=== PATIENT | female | born 1980 | race Caucasian/White ===

== ENCOUNTER 2016-12-03 11:46 | Emergency (ER) | payer BC ==
--- NOTE | 2016-12-03 12:31 | ER Document Report ---
ED Medical Screen (RME) - General Stated Complaint: VAGINAL BLEEDING Notes: 36 yo female c/o vaginal bleeding, post menopausal. sent by Dr Saldana from [facility] for further evaluation. Saturating more than1 pad/hr. lower abdominal pain. hx/o Bone Marrow Transplant abdomen soft, + suprapubic tenderness TRAVEL OUTSIDE OF THE [place] IN LAST 30 DAYS: No - Related Data Allergies/Adverse Reactions: metronidazole [From Flagyl] Allergy (Severe, Verified 12/03/16 12:20) Urticaria Metronidazole HCl [From Flagyl] Allergy (Severe, Verified 12/03/16 12:20) Urticaria Past Medical History - Past Medical History Cardiac Medical History: Reports: Hx Hypertension Pulmonary Medical History: Reports: Hx Pneumonia GI Medical History: Reports: Hx Diverticulitis, Hx Gastroesophageal Reflux Disease Past Surgical History: Reports: Hx Abdominal Surgery - Sigmoid colectomy for diverticulitis and lap band procedure, Hx Orthopedic Surgery - wrist - Immunizations Hx Diphtheria, Pertussis, Tetanus Vaccination: No Physical Exam - Vital signs Vitals: Temp Pulse Resp BP Pulse Ox 98.1 F 91 18 110/74 100 12/03/16 12:08 12/03/16 12:08 12/03/16 12:08 12/03/16 12:08 12/03/16 12:08 Course - Vital Signs Vital signs: Temp Pulse Resp BP Pulse Ox 98.1 F 91 18 110/74 100 12/03/16 12:08 12/03/16 12:08 12/03/16 12:08 12/03/16 12:08 12/03/16 12:08
[2016-12-03 13:02] LABS: ABSOLUTE EOSINOPHILS # (AUTO) 0.2 10^3/uL (0.0-0.6); ABSOLUTE LYMPHOCYTES (AUTO) 3.1 10^3/uL (0.5-4.7); ABSOLUTE MONOCYTES (AUTO) 0.8 10^3/uL (0.1-1.4); ABSOLUTE NEUT (AUTO) 5.2 10^3/uL (1.7-8.2); BASOPHILS % (AUTO) 0.3 % (0-2); EOSINOPHILS % (AUTO) 2.5 % (0-6); HEMOGLOBIN 14.5 g/dL (12.0-15.5); HGB HCT DIFFERENCE 0.5; LYMPHOCYTES % (AUTO) 33.2 % (13-45); MEAN CORPUSCULAR HEMOGLOBIN 31.3 pg (27.0-33.4); MEAN CORPUSCULAR HGB CONC 33.6 g/dL (32.0-36.0); MEAN CORPUSCULAR VOLUME 93 fl (80-97); MONOCYTES % (AUTO) 8.2 % (3-13); RED BLOOD COUNT 4.63 10^6/uL (3.72-5.28); RED CELL DISTRIBUTION WIDTH 14.8 % (11.5-14.0); SEGMENTED NEUTROPHILS % (AUTO) 55.8 % (42-78); WHITE BLOOD COUNT 9.3 10^3/uL (4.0-10.5)
[2016-12-03 13:15] LABS: ALANINE AMINOTRANSFERASE 30 U/L (9-52); ALBUMIN 4.6 g/dL (3.5-5.0); ALKALINE PHOSPHATASE 139 U/L (38-126); ANION GAP 15 (5-19); ASPARTATE AMINO TRANSFERASE 24 U/L (14-36); BILIRUBIN,TOTAL 0.5 mg/dL (0.2-1.3); BLOOD UREA NITROGEN 13 mg/dL (7-20); CALCIUM 9.7 mg/dL (8.4-10.2); CARBON DIOXIDE 20 mmol/L (22-30); CHLORIDE 111 mmol/L (98-107); GLUCOSE 103 mg/dL (75-110); POTASSIUM 4.1 mmol/L (3.6-5.0); TOTAL PROTEIN 7.9 g/dL (6.3-8.2)
--- NOTE | 2016-12-03 15:34 | ER Document Report ---
ED General - General Chief Complaint: Vaginal Bleeding Stated Complaint: VAGINAL BLEEDING Time seen by provider: 15:31 Mode of Arrival: Ambulatory Information source: Patient Notes: 36-year-old female with heavy vaginal bleeding and passage of clots with bilateral lower abdominal cramping similar to menstrual cramps beginning yesterday. 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 He says she's been told that she is prone to drop her platelets and that if she had further postmenopausal bleeding she might require intermittent real ablation. She contacted her RESORT MANAGER Dr. Dash about this this morning and says she was told to come to the emergency department have that done now. She reports she is in remission from her AML. She denies ever, chills, nausea, vomiting, cough, shortness of breath, dysuria, chest pain, or back pain. Physical Exam: General: Alert, appears well. HEENT: Normocephalic. Atraumatic. PERRLA. Extraocular movements intact. Oropharynx clear. Neck: Supple. Non-tender. Respiratory: No respiratory distress. Clear and equal breath sounds bilaterally. Cardiovascular: Regular rate and rhythm. Abdominal: Normal Inspection. Soft, trace bilateral lower abdominal tenderness no guarding rebound rigidity no distension. Normal Bowel Sounds. exam normal external female genitalia. No lesions noted in vaginal vault. She has a small amount of her appears to be old blood less than 3 mL but no active bleeding is present no cervical motion tenderness os closed no adnexal masses or tenderness uterus is small and nontender Back: Non-tender. No deformity or step off. Extremities: Moves all four extremities. Upper extremities: Normal inspection. Non-tender. Normal color. Normal ROM. Normal temperature. Lower extremities: Normal inspection. Non-tender. No edema. Normal color. Normal ROM. Normal temperature. Neurological: Speech clear mentation normal moves all extremities well Psychological: Normal affect. Normal Mood. Skin: Warm. Dry. Normal color. TRAVEL OUTSIDE OF THE [place] IN LAST 30 DAYS: No - Related Data Allergies/Adverse Reactions: metronidazole [From Flagyl] Allergy (Severe, Verified 12/03/16 12:20) Urticaria Metronidazole HCl [From Flagyl] Allergy (Severe, Verified 12/03/16 12:20) Urticaria Past Medical History - Social History Smoking Status: Never Smoker Chew tobacco use (# tins/day): No Family History: DM, Hypertension Patient has suicidal ideation: No Patient has homicidal ideation: No - Past Medical History Cardiac Medical History: Reports: Hx Hypertension Pulmonary Medical History: Reports: Hx Pneumonia Renal/ Medical History: Denies: Hx Peritoneal Dialysis GI Medical History: Reports: Hx Diverticulitis, Hx Gastroesophageal Reflux Disease Past Surgical History: Reports: Hx Abdominal Surgery - Sigmoid colectomy for diverticulitis and lap band procedure, Hx Orthopedic Surgery - wrist - Immunizations Hx Diphtheria, Pertussis, Tetanus Vaccination: No Review of Systems - Review of Systems Constitutional: denies: Chills, Fever EENT: denies: Ear pain, Throat pain Cardiovascular: denies: Chest pain, Dizziness Respiratory: denies: Cough, Short of breath Gastrointestinal: See HPI Genitourinary: denies: Burning, Dysuria Female Genitourinary: See HPI Musculoskeletal: denies: Back pain Skin: denies: Rash Hematologic/Lymphatic: denies: Swollen glands Neurological/Psychological: denies: Weakness, Numbness Physical Exam - Vital signs Vitals: Temp Pulse Resp BP Pulse Ox 98.1 F 91 18 110/74 100 12/03/16 12:08 12/03/16 12:08 12/03/16 12:08 12/03/16 12:08 12/03/16 12:08 Course - Re-evaluation Re-evalutation: 12/03/16 19:26 I discussed findings with Dr. Sky manager utilization management for RESORT MANAGER. She reports that their plan from management of the patient may include endometrial ablation but as an outpatient procedure and the had no plans to admit her. The patient's laboratory workup is reassuring I believe she is safe for discharge with outpatient follow-up she is instructed to call the office tomorrow for that - Vital Signs Vital signs: Temp Pulse Resp BP Pulse Ox 98.9 F 74 20 101/58 L 99 12/03/16 18:51 12/03/16 18:51 12/03/16 18:51 12/03/16 18:51 12/03/16 18:51 - Laboratory Result Diagrams: 12/03/16 12:35 12/03/16 12:35 Laboratory results interpreted by me: 12/03/16 12/03/16 12/03/16 12:35 12:35 17:50 RDW 14.8 H Sodium 146.0 H Chloride 111 H Carbon Dioxide 20 L Alkaline Phosphatase 139 H Urine Blood MODERATE H Discharge - Discharge Clinical Impression: Postmenopausal bleeding Condition: Stable Disposition: HOME, SELF-CARE Additional Instructions: Call your RESORT MANAGER tomorrow to arrange follow-up. Call your doctor or return to the emergency department for further problems Prescriptions: Tramadol HCl 50 mg PO BID #10 tablet Referrals: DEE CARREON MD [ACTIVE STAFF] - Follow up tomorrow
[2016-12-03 18:19] LABS: APPEARANCE,URINE CLEAR; BILIRUBIN,URINE NEGATIVE (NEGATIVE); GLUCOSE, URINE NEGATIVE (NEGATIVE); KETONES,URINE NEGATIVE (NEGATIVE); LEUKOCYTE ESTERASE,URINE NEGATIVE (NEGATIVE); NITRITE,URINE NEGATIVE (NEGATIVE); PROTEIN,URINE NEGATIVE (NEGATIVE); URINE SPECIFIC GRAVITY 1.011; UROBILINOGEN,URINE NEGATIVE mg/dL (<2.0)
[2016-12-03 18:50] LABS: CHLAM PCR NOT DETECTED (NOT DETECT)
[2016-12-03] MEDS ORDERED: TRAMADOL HCL 50 MG TABLET PO ONE (18:53)
[2016-12-03 20:02] VITALS: BP 106/60
== END 2016-12-03 20:05 | disposition home or self-care (01) ==
LOC: ER 11:46
DX: N95.0 Postmenopausal bleeding (principal); R10.30 Lower abdominal pain, unspecified; C92.Z1 Other myeloid leukemia, in remission
CPT/HCPCS: 36415; 80053; 81001; 84703; 85025; 86850; 86900; 86901; 87086; 87210; 87491; 87591; 99284

== ENCOUNTER → 2016-12-10 | Outpatient (CLI) | payer BC ==
[2016-12-10 15:23] LABS: HEMATOCRIT 41.1 % (36.0-47.0); HEMOGLOBIN 13.9 g/dL (12.0-15.5); HGB HCT DIFFERENCE 0.6; MEAN CORPUSCULAR HEMOGLOBIN 30.9 pg (27.0-33.4); MEAN CORPUSCULAR HGB CONC 33.9 g/dL (32.0-36.0); MEAN CORPUSCULAR VOLUME 91 fl (80-97); RED BLOOD COUNT 4.51 10^6/uL (3.72-5.28); RED CELL DISTRIBUTION WIDTH 14.6 % (11.5-14.0); WHITE BLOOD COUNT 5.7 10^3/uL (4.0-10.5)
[2016-12-10 15:46] LABS: BASOPHILS % (MANUAL) 0 % (0-2); EOSINOPHILS % (MANUAL) 2 % (0-6); LYMPHOCYTES % (MANUAL) 55 % (13-45); TOTAL CELLS COUNTED 100
[2016-12-10 15:48] LABS: OVALOCYTES SLIGHT; POIKILOCYTOSIS SLIGHT
== END ==
LOC: OD 14:27
PROVIDERS: ATTEND Specialist
DX: D50.9 Iron deficiency anemia, unspecified (principal)
CPT/HCPCS: 36415; 85025

== ENCOUNTER 2016-12-12 05:30 | Day surgery (SDC) | payer BC ==
[2016-12-11 11:19] LABS: APPEARANCE,URINE SLIGHTLY-CLOUDY; BILIRUBIN,URINE NEGATIVE (NEGATIVE); GLUCOSE, URINE NEGATIVE (NEGATIVE); KETONES,URINE NEGATIVE (NEGATIVE); LEUKOCYTE ESTERASE,URINE NEGATIVE (NEGATIVE); NITRITE,URINE NEGATIVE (NEGATIVE); PROTEIN,URINE 30 mg/dL (NEGATIVE); URINE SPECIFIC GRAVITY 1.031
[~2016-12-12 05:30] MED LIST: ACETAMINOPHEN 100 ML IV PRN; CEFAZOLIN 2 GM/D5W RTU 2 GM/50 ML RTUPB IV PRN; LACTATED RINGERS 1000 ML IV PRN; LIDOCAINE 0.5% INJ-PF (5 MG/ML) 50 ML SDV SUBCUT PRN
[2016-12-12] MEDS ORDERED: MIDAZOLAM 2 MG/2 ML INJ ONE (06:57)
[2016-12-12] MEDS ORDERED: ACETAMINOPHEN 100 ML IV ONE (06:57)
[2016-12-12] MEDS ORDERED: LIDOCAINE 2% INJ-PF (20 MG/ML) 10 ML AMPUL ONE (06:57)
[2016-12-12] MEDS ORDERED: HYDROMORPHONE HCL INJ/PF 2 MG/ML AMPULE ONE (06:57)
[2016-12-12] MEDS ORDERED: PROPOFOL INJ 200 MG/20 ML VIAL IV ONE (06:57)
[2016-12-12] MEDS ORDERED: DEXAMETHASONE SOD PHOSPHATE INJ 4 MG/1 ML VIAL ONE (06:57)
[2016-12-12] MEDS ORDERED: ONDANSETRON HCL INJ/PF 4 MG/2 ML SDV ONE (06:58)
[2016-12-12] MEDS ORDERED: ONDANSETRON HCL INJ/PF 4 MG/2 ML SDV IV PRN (08:04)
[2016-12-12] MEDS ORDERED: PROMETHAZINE HCL INJ 25 MG/1 ML VIAL IV PRN ×2 (08:04)
[2016-12-12] MEDS ORDERED: MORPHINE SULFATE 10 MG/ML INJ IV PRN (08:04)
[2016-12-12] MEDS ORDERED: FENTANYL CITRATE INJ/PF 100 MCG/2 ML AMPUL IV PRN ×3 (08:04)
[2016-12-12] MEDS ORDERED: OXYCODONE-ACETAMINOPHEN 5-325 MG TABLET PO PRN ×4 (08:04→09:20)
[2016-12-12] MEDS ORDERED: MEPERIDINE HCL/PF INJ 25 MG/1 ML DISP.SYRIN IV PRN (08:04)
[2016-12-12] MEDS ORDERED: DIPHENHYDRAMINE HCL 50 MG/ML VIAL IV PRN (08:04)
[2016-12-12] MEDS ORDERED: FENTANYL CITRATE INJ/PF 100 MCG/2 ML AMPUL ONE (09:02)
[2016-12-12] MEDS ORDERED: HYDROMORPHONE HCL INJ/PF 2 MG/ML AMPULE IV PRN (09:16)
[2016-12-12] MEDS ORDERED: RINGERS SOLUTION,LACTATED 1,000 ML IV PRN (09:21)
--- NOTE | 2016-12-12 09:28 | OPERATIVE REPORT E ---
Operative Report NAME: KENDRA SAMMIE : 1980 AGE: 36Y DATE OF SURGERY: 12/12/2016 ROOM: PREOPERATIVE DIAGNOSIS: Abnormal uterine bleeding. POSTOPERATIVE DIAGNOSIS: Abnormal uterine bleeding. OPERATION: Hysteroscopy with NovaSure endometrial ablation. SURGEON: DEE CARREON M.D. ANESTHESIA: General via laryngeal mask. ESTIMATED BLOOD LOSS: 25 mL. SPECIMENS TO PATHOLOGY: None. FINDINGS: Endometrial cavity was without lesions. Uterus was retroverted. Cavity length of 4 cm, width 2.6 cm. Ablation time was 2 minutes at a power of 57. DESCRIPTION OF PROCEDURE: After discussing risks, benefits, and alternatives of the procedure and obtaining informed consent, the patient was taken to the operating room where anesthesia was achieved. She was positioned in the dorsal lithotomy position, prepped and draped in the standard fashion. The bladder was drained via in-and-out catheterization. A speculum was placed in the vagina and the posterior aspect of the cervix was grasped with a single tooth tenaculum. The uterus was sounded and cavity length obtained. The cervix was serially dilated to allow for passage of the diagnostic hysteroscope. Hysteroscopy was performed. Next the hysteroscope was removed and the NovaSure device was placed and cavity width obtained. The cavity integrity is in the past and the cavity was ablated in the standard fashion. The NovaSure device was removed and the hysteroscope replaced, and a good burn of the cavity was noted. The tenaculum site was bleeding. A stitch of 2-0 Vicryl was used in a [id number] fashion for hemostasis. A small amount of Monsel's and Surgicel were also applied. This led to hemostasis. All instruments were removed from the vagina. The patient was taken out dorsal lithotomy, extubated, and to recovery in stable condition. All sponge, needle, lap, and instrument counts were correct x2. DICTATING PHYSICIAN: DEE CARREON M.D. [id number] PHY#: [id number] ID: [id number] JOB#: [id number] ACCT: [id number] cc:DEE CARREON M.D. > MTDD
[2016-12-12 11:58] VITALS: BP 105/67
== END 2016-12-12 10:50 | disposition home or self-care (01) ==
LOC: OROUT 05:30
PROVIDERS: ATTEND Specialist
PROC: 0U5B8ZZ Destruction of Endometrium, Via Natural or Artificial Opening Endoscopic (ICD-10-PCS; principal; 2016-12-12 07:30)
DX: N93.9 Abnormal uterine and vaginal bleeding, unspecified (principal); K21.9 Gastro-esophageal reflux disease without esophagitis; C95.91 Leukemia, unspecified, in remission; Z79.899 Other long term (current) drug therapy
CPT/HCPCS: 86900; 86901; 36415; 86850; 81025; 81001; 58563; J2250; J1100; J3010; J1170; J2405; J2704; J3490; J0690; J0131; 952

== ENCOUNTER → 2016-12-17 | Outpatient (CLI) | payer BC ==
[2016-12-17 10:00] LABS: ABSOLUTE EOSINOPHILS # (AUTO) 0.2 10^3/uL (0.0-0.6); ABSOLUTE LYMPHOCYTES (AUTO) 1.9 10^3/uL (0.5-4.7); ABSOLUTE MONOCYTES (AUTO) 0.6 10^3/uL (0.1-1.4); ABSOLUTE NEUT (AUTO) 5.7 10^3/uL (1.7-8.2); BASOPHILS % (AUTO) 0.3 % (0-2); EOSINOPHILS % (AUTO) 2.2 % (0-6); HEMATOCRIT 39.8 % (36.0-47.0); HEMOGLOBIN 13.4 g/dL (12.0-15.5); HGB HCT DIFFERENCE 0.4; LYMPHOCYTES % (AUTO) 22.7 % (13-45); MEAN CORPUSCULAR HEMOGLOBIN 30.6 pg (27.0-33.4); MEAN CORPUSCULAR HGB CONC 33.7 g/dL (32.0-36.0); MEAN CORPUSCULAR VOLUME 91 fl (80-97); MONOCYTES % (AUTO) 7.4 % (3-13); RED BLOOD COUNT 4.38 10^6/uL (3.72-5.28); RED CELL DISTRIBUTION WIDTH 14.7 % (11.5-14.0); SEGMENTED NEUTROPHILS % (AUTO) 67.4 % (42-78); WHITE BLOOD COUNT 8.5 10^3/uL (4.0-10.5)
== END ==
LOC: OD 09:11
PROVIDERS: ATTEND Nurse Practitioner Acute Care
DX: Z94.84 Stem cells transplant status (principal)
CPT/HCPCS: 36415; 85025

== ENCOUNTER → 2017-10-26 | Outpatient (CLI) | payer BC ==
[2017-10-26 16:11] LABS: ABSOLUTE EOSINOPHILS # (AUTO) 0.2 10^3/uL (0.0-0.6); ABSOLUTE MONOCYTES (AUTO) 0.5 10^3/uL (0.1-1.4); ABSOLUTE NEUT (AUTO) 3.7 10^3/uL (1.7-8.2); BASOPHILS % (AUTO) 0.2 % (0-2); EOSINOPHILS % (AUTO) 2.5 % (0-6); HEMATOCRIT 40.1 % (36.0-47.0); HEMOGLOBIN 13.7 g/dL (12.0-15.5); LYMPHOCYTES % (AUTO) 40.2 % (13-45); MEAN CORPUSCULAR HEMOGLOBIN 31.4 pg (27.0-33.4); MEAN CORPUSCULAR HGB CONC 34.2 g/dL (32.0-36.0); MEAN CORPUSCULAR VOLUME 92 fl (80-97); MONOCYTES % (AUTO) 6.6 % (3-13); PLATELET COUNT 190 10^3/uL (150-450); RED BLOOD COUNT 4.36 10^6/uL (3.72-5.28); RED CELL DISTRIBUTION WIDTH 13.9 % (11.5-14.0); SEGMENTED NEUTROPHILS % (AUTO) 50.5 % (42-78); TOTAL CELLS COUNTED % (AUTO) 100 %; WHITE BLOOD COUNT 7.4 10^3/uL (4.0-10.5)
== END ==
LOC: OD 15:39
PROVIDERS: ATTEND Internal Medicine
DX: Z94.81 Bone marrow transplant status (principal)
CPT/HCPCS: 36415; 85025

== ENCOUNTER → 2019-01-28 | Outpatient (CLI) | payer BC ==
[2019-01-28 13:54] LABS: HEMATOCRIT 40.2 % (36.0-47.0); HEMOGLOBIN 13.6 g/dL (12.0-15.5); MEAN CORPUSCULAR VOLUME 91 fl (80-97); PLATELET COUNT 232 10^3/uL (150-450); WHITE BLOOD COUNT 8.2 10^3/uL (4.0-10.5)
[2019-01-28 18:33] LABS: ABSOLUTE LYMPHOCYTES# (MANUAL) 1.3 10^3/uL (0.5-4.7); ABSOLUTE MONOCYTES # (MANUAL) 0.2 10^3/uL (0.1-1.4); ABSOLUTE NEUTROPHILS# (MANUAL) 6.5 10^3/uL (1.7-8.2); BASOPHILS % (MANUAL) 0 % (0-2); EOSINOPHILS % (MANUAL) 2 % (0-6); LYMPHOCYTES % (MANUAL) 16 % (13-45); MONOCYTES % (MANUAL) 3 % (3-13); SEGMENTED NEUTROPHILS % (MAN) 79 % (42-78); TOTAL CELLS COUNTED 100
[2019-01-28 18:34] LABS: ANISOCYTOSIS SLIGHT; HYPOCHROMASIA 1+; PLATELET COMMENT ADEQUATE
== END ==
LOC: OD 12:43
PROVIDERS: ATTEND Nurse Practitioner Primary Care
DX: R05 Cough (principal); J06.9 Acute upper respiratory infection, unspecified; Z85.6 Personal history of leukemia; Z94.81 Bone marrow transplant status
CPT/HCPCS: 36415; 85025; 88184; 88185

== ENCOUNTER → 2019-02-17 | Outpatient (CLI) | payer BC ==
[2019-02-17 09:09] LABS: ABSOLUTE EOSINOPHILS # (AUTO) 0.2 10^3/uL (0.0-0.6); ABSOLUTE LYMPHOCYTES (AUTO) 1.8 10^3/uL (0.5-4.7); ABSOLUTE MONOCYTES (AUTO) 0.4 10^3/uL (0.1-1.4); ABSOLUTE NEUT (AUTO) 3.4 10^3/uL (1.7-8.2); BASOPHILS % (AUTO) 0.5 % (0-2); EOSINOPHILS % (AUTO) 3.7 % (0-6); HEMOGLOBIN 14.2 g/dL (12.0-15.5); LYMPHOCYTES % (AUTO) 30.5 % (13-45); MEAN CORPUSCULAR HEMOGLOBIN 31.6 pg (27.0-33.4); MEAN CORPUSCULAR HGB CONC 34.6 g/dL (32.0-36.0); MEAN CORPUSCULAR VOLUME 92 fl (80-97); MONOCYTES % (AUTO) 7.4 % (3-13); PLATELET COUNT 196 10^3/uL (150-450); RED BLOOD COUNT 4.49 10^6/uL (3.72-5.28); RED CELL DISTRIBUTION WIDTH 13.8 % (11.5-14.0); SEGMENTED NEUTROPHILS % (AUTO) 57.9 % (42-78); TOTAL CELLS COUNTED % (AUTO) 100 %; WHITE BLOOD COUNT 5.9 10^3/uL (4.0-10.5)
[2019-02-17 09:31] LABS: ALANINE AMINOTRANSFERASE 33 U/L (9-52); ALBUMIN 4.8 g/dL (3.5-5.0); ALKALINE PHOSPHATASE 81 U/L (38-126); ANION GAP 12 (5-19); ASPARTATE AMINO TRANSFERASE 27 U/L (14-36); BILIRUBIN,DIRECT 0.3 mg/dL (0.0-0.4); BILIRUBIN,TOTAL 0.4 mg/dL (0.2-1.3); BLOOD UREA NITROGEN 19 mg/dL (7-20); CARBON DIOXIDE 25 mmol/L (22-30); CHLORIDE 107 mmol/L (98-107); CHOLESTEROL 182.44 mg/dL (0-200); GLUCOSE 114 mg/dL (75-110); POTASSIUM 4.2 mmol/L (3.6-5.0); SODIUM 144.3 mmol/L (137-145); TOTAL PROTEIN 7.6 g/dL (6.3-8.2); TRIGLYCERIDES 120 mg/dL (<150)
[2019-02-17 09:44] LABS: DIRECT LDL 106 mg/dL (<100)
[2019-02-17 09:47] LABS: FREE T3 3.18 pg/mL (2.77-5.27); FREE T4 (FREE THYROXINE) 1.21 ng/dL (0.78-2.19)
[2019-02-17 10:01] LABS: THYROID STIMULATING HORMONE 3.33 uIU/mL (0.47-4.68)
[2019-02-18 13:38] LABS: THYROID PEROXIDASE (TPO) AB 20 IU/mL (0-34)
[2019-02-18 15:29] LABS: THYROGLOBULIN AB SO <1.0 IU/mL (0.0-0.9)
== END ==
LOC: OD 07:55
PROVIDERS: ATTEND Psychiatry & Neurology Psychiatry
DX: F50.81 Binge eating disorder (principal)
CPT/HCPCS: 36415; 80053; 80061; 82306; 82607; 84439; 84443; 84479; 84481; 85025; 86376

== ENCOUNTER 2019-05-15 16:39 | Emergency (ER) | payer BC ==
[2019-05-15] MEDS ORDERED: ACETAMINOPHEN 325 MG TABLET PO ONE (17:01)
[2019-05-15] MEDS ORDERED: NORMAL SALINE 1000 ML 2,000 ML IV ONE (17:01)
--- NOTE | 2019-05-15 17:05 | ER Document Report ---
ED Medical Screen (RME) - General Chief Complaint: Skin Problem Stated Complaint: POSSIBLE BUG BITE Time Seen by Provider: 05/15/19 16:53 Primary Care Provider: WILTON PAZ MD [Primary Care Provider] - Follow up as needed Mode of Arrival: Ambulatory Information source: Patient Notes: 38-year-old female presented to ED for red swollen tender area to the left lower abdomen since Thursday morning. She has a temperature of 100.7 with a pulse of 120. She states she is not on any medication that should make her pulse that high. Sepsis protocol was started. Patient is alert oriented but she states she does not feel good. She states the area that is red and swollen is so painful that is actually causing her to have body aches and a headache. I have greeted and performed a rapid initial assessment of this patient. A comprehensive ED assessment and evaluation of the patient, analysis of test results and completion of medical decision making process will be conducted by an additional ED providers. TRAVEL OUTSIDE OF THE [place] IN LAST 30 DAYS: No - Related Data Allergies/Adverse Reactions: metronidazole [From Flagyl] Allergy (Severe, Verified 12/11/16 10:11) Urticaria Metronidazole HCl [From Flagyl] Allergy (Severe, Verified 12/11/16 10:11) Urticaria levofloxacin [From Levaquin] Allergy (Verified 12/12/16 05:37) sulfamethoxazole [From Bactrim] Allergy (Verified 12/12/16 05:37) trimethoprim [From Bactrim] Allergy (Verified 12/12/16 05:37) Past Medical History - Social History Frequency of alcohol use: Social Drug Abuse: None - Past Medical History Cardiac Medical History: Reports: Hx Hypertension Denies: Hx Coronary Artery Disease, Hx Heart Attack Pulmonary Medical History: Reports: Hx Bronchitis, Hx Pneumonia Denies: Hx Asthma, Hx COPD Neurological Medical History: Denies: Hx Cerebrovascular Accident, Hx Seizures Renal/ Medical History: Denies: Hx Peritoneal Dialysis GI Medical History: Reports: Hx Diverticulitis, Hx Gastroesophageal Reflux Disease Musculoskeltal Medical History: Denies Hx Arthritis Past Surgical History: Reports: Hx Abdominal Surgery - Sigmoid colectomy for diverticulitis and lap band procedure, Hx Orthopedic Surgery - wrist - Immunizations Hx Diphtheria, Pertussis, Tetanus Vaccination: No Physical Exam - Vital signs Vitals: Temp Pulse Resp BP Pulse Ox 100.4 F 120 H 18 119/83 98 05/15/19 16:55 05/15/19 16:55 05/15/19 16:55 05/15/19 16:55 05/15/19 16:55 Course - Vital Signs Vital signs: Temp Pulse Resp BP Pulse Ox 100.4 F 120 H 18 119/83 98 05/15/19 16:55 05/15/19 16:55 05/15/19 16:55 05/15/19 16:55 05/15/19 16:55 Doctor's Discharge - Discharge Referrals: WILTON PZA MD [Primary Care Provider] - Follow up as needed
[2019-05-15 17:40] LABS: VENOUS BLOOD BASE EXCESS 2.7 mmol/L; VENOUS BLOOD PCO2 36.1 mmHg (35-63); VENOUS BLOOD PH 7.48 (7.30-7.42)
[2019-05-15 17:56] LABS: INTERNATIONAL RATION (INR) 1.09; PROTHROMBIN TIME 14.1 SEC (11.4-15.4)
[2019-05-15 18:01] LABS: ALBUMIN 4.7 g/dL (3.5-5.0); ALKALINE PHOSPHATASE 101 U/L (38-126); ANION GAP 11 (5-19); ASPARTATE AMINO TRANSFERASE 36 U/L (14-36); BILIRUBIN,DIRECT 0.3 mg/dL (0.0-0.4); BILIRUBIN,TOTAL 0.6 mg/dL (0.2-1.3); BLOOD UREA NITROGEN 9 mg/dL (7-20); CALCIUM 9.7 mg/dL (8.4-10.2); CARBON DIOXIDE 26 mmol/L (22-30); CHLORIDE 103 mmol/L (98-107); GLUCOSE 123 mg/dL (75-110); TOTAL PROTEIN 7.5 g/dL (6.3-8.2)
[2019-05-15 18:02] LABS: ABSOLUTE BASOPHILS # (AUTO) 0.1 10^3/uL (0.0-0.2); ABSOLUTE EOSINOPHILS # (AUTO) 0.1 10^3/uL (0.0-0.6); ABSOLUTE LYMPHOCYTES (AUTO) 1.8 10^3/uL (0.5-4.7); ABSOLUTE NEUT (AUTO) 10.3 10^3/uL (1.7-8.2); BASOPHILS % (AUTO) 0.5 % (0-2); EOSINOPHILS % (AUTO) 0.5 % (0-6); HEMATOCRIT 40.6 % (36.0-47.0); HEMOGLOBIN 13.9 g/dL (12.0-15.5); LYMPHOCYTES % (AUTO) 13.4 % (13-45); MEAN CORPUSCULAR HEMOGLOBIN 31.2 pg (27.0-33.4); MEAN CORPUSCULAR HGB CONC 34.2 g/dL (32.0-36.0); MEAN CORPUSCULAR VOLUME 91 fl (80-97); MONOCYTES % (AUTO) 7.2 % (3-13); PLATELET COUNT 147 10^3/uL (150-450); RED BLOOD COUNT 4.46 10^6/uL (3.72-5.28); RED CELL DISTRIBUTION WIDTH 14.3 % (11.5-14.0); SEGMENTED NEUTROPHILS % (AUTO) 78.4 % (42-78); TOTAL CELLS COUNTED % (AUTO) 100 %; WHITE BLOOD COUNT 13.2 10^3/uL (4.0-10.5)
--- NOTE | 2019-05-15 18:44 | RADIOLOGY REPORT (SQ) ---
EXAM DESCRIPTION: CHEST 2 VIEWS COMPLETED DATE/TIME: 05/15/2019 6:35 pm REASON FOR STUDY: sepsis protocol COMPARISON: Chest x-ray and CT chest 02/12/2016. EXAM PARAMETERS: NUMBER OF VIEWS: two views TECHNIQUE: Digital Frontal and Lateral radiographic views of the chest acquired. RADIATION DOSE: NA LIMITATIONS: none FINDINGS: LUNGS AND PLEURA: No consolidation, pneumothorax or pleural effusion. MEDIASTINUM AND HILAR STRUCTURES: No masses or contour abnormalities. HEART AND VASCULAR STRUCTURES: Heart normal size. No evidence for failure. BONES: No acute findings. HARDWARE: None in the chest. IMPRESSION: NO ACUTE RADIOGRAPHIC FINDING IN THE CHEST. TECHNICAL DOCUMENTATION: JOB ID: [id number] [employer]- All Rights Reserved Reading location - IP/workstation name: [email or web address]
[2019-05-15] MEDS ORDERED: HYDROMORPHONE HCL INJ/PF 2 MG/ML AMPULE IV ONE (19:23)
[2019-05-15] MEDS ORDERED: ONDANSETRON HCL INJ/PF 4 MG/2 ML SDV IV ONE (19:23)
[2019-05-15] MEDS ORDERED: KETOROLAC TROMETHAMINE INJ/PF 30 MG/1 ML SDV IV ONE (19:24)
[2019-05-15] MEDS ORDERED: DOXYCYCLINE HYCLATE 100 MG TABLET PO ONE (19:24)
--- NOTE | 2019-05-15 19:32 | ER Document Report ---
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 Patient states that yesterday she noticed a pinpoint area of erythema which quickly worsened. Patient developed a fever today and has associated nausea without vomiting. Patient denies history of MRSA. She denies headache, vo miting, chest pain, shortness of breath, dysuria, hematuria, back pain. TRAVEL OUTSIDE OF THE [place] IN LAST 30 DAYS: No - HPI Onset: Yesterday Onset/Duration: Gradual, Persistent, Worse Quality of pain: Burning Severity: Moderate Pain Level: 2 Associated symptoms: Body/muscle aches, Chills, Fever, Nausea, Other - Abdominal pain. denies: Chest pain, Diarrhea, Vomiting, Shortness of breath Exacerbated by: Other - Palpation Relieved by: Denies Similar symptoms previously: No Recently seen / treated by doctor: No - Related Data Allergies/Adverse Reactions: metronidazole [From Flagyl] Allergy (Severe, Verified 12/11/16 10:11) Urticaria Metronidazole HCl [From Flagyl] Allergy (Severe, Verified 12/11/16 10:11) Urticaria levofloxacin [From Levaquin] Allergy (Verified 12/12/16 05:37) sulfamethoxazole [From Bactrim] Allergy (Verified 12/12/16 05:37) trimethoprim [From Bactrim] Allergy (Verified 12/12/16 05:37) Past Medical History - General Information source: Patient - Social History Smoking Status: Never Smoker Frequency of alcohol use: Social Drug Abuse: None Lives with: Family Family History: DM, Hypertension Patient has suicidal ideation: No Patient has homicidal ideation: No - Past Medical History Cardiac Medical History: Reports: Hx Hypertension Denies: Hx Coronary Artery Disease, Hx Heart Attack Pulmonary Medical History: Reports: Hx Bronchitis, Hx Pneumonia Denies: Hx Asthma, Hx COPD Neurological Medical History: Denies: Hx Cerebrovascular Accident, Hx Seizures Renal/ Medical History: Denies: Hx Peritoneal Dialysis GI Medical History: Reports: Hx Diverticulitis, Hx Gastroesophageal Reflux Disease Musculoskeletal Medical History: Denies Hx Arthritis Past Surgical History: Reports: Hx Abdominal Surgery - Sigmoid colectomy for diverticulitis and lap band procedure, Hx Orthopedic Surgery - wrist - Immunizations Hx Diphtheria, Pertussis, Tetanus Vaccination: No Review of Systems - Review of Systems Notes: REVIEW OF SYSTEMS: CONSTITUTIONAL : + fever, denies sweats. Denies recent illness. Denies weight loss, recent hospitalizations. EENT: Denies visual changes, eye pain. Denies sore throat, oral lesions, difficulty swallowing. CARDIOVASCULAR: Denies chest pain. Denies palpitations. Denies lower extremity edema. RESPIRATORY: Denies cough. Denies shortness of breath, wheezing. GASTROINTESTINAL: Denies abdominal pain or distention. Denies vomiting, or diarrhea. Denies blood in vomitus, stools, or per rectum. Denies black, tarry stools. Denies constipation. GENITOURINARY: Denies difficulty urinating, painful urination, frequency, blood in urine, or vaginal discharge. MUSCULOSKELETAL: Denies back or neck pain or stiffness. Denies joint pain or swelling. SKIN: Cellulitis to the abdomen HEMATOLOGIC : Denies easy bruising or bleeding. LYMPHATIC: Denies swollen glands. NEUROLOGICAL: Denies confusion or altered mental status. Denies loss of c onsciousness. Denies dizziness or lightheadedness. Denies headache. Denies weakness or paralysis. Denies problems difficulty with ambulation, slurred speech. Denies sensory loss, numbness, or tingling. Denies seizures. PSYCHIATRIC: Denies anxiety or stress. Denies depression, suicidal ideation, or homicidal ideation. Denies visual or auditory hallucinations. Physical Exam - Vital signs Vitals: Temp Pulse Resp BP Pulse Ox 100.4 F 120 H 18 119/83 98 05/15/19 16:55 05/15/19 16:55 05/15/19 16:55 05/15/19 16:55 05/15/19 16:55 - Notes Notes: PHYSICAL EXAMINATION: GENERAL: Well-appearing, well-nourished and in no acute distress. HEAD: Atraumatic, normocephalic. EYES: Pupils equal round and reactive to light, extraocular movements intact, conjunctiva are normal. ENT: Nares patent, oropharynx clear without exudates. Moist mucous membranes. NECK: Normal range of motion, supple without lymphadenopathy LUNGS: Breath sounds clear to auscultation bilaterally and equal. No wheezes rales or rhonchi. HEART: Regular rate and rhythm without murmurs ABDOMEN: Soft, nontender, nondistended abdomen. No guarding, no rebound. No masses appreciated. 15 x 7 cm area of erythema, warmth of the abdominal wall. No associated fluctuance, induration. Female : deferred Musculoskeletal: Normal range of motion, no pitting or edema. No cyanosis. NEUROLOGICAL: Cranial nerves grossly intact. Normal speech, normal gait. Normal sensory, motor exams PSYCH: Normal mood, normal affect. SKIN: 15 x 7 cm area of erythema, warmth of the abdominal wall. No associated fluctuance, induration. Course - Re-evaluation Re-evalutation: 05/15/19 19:32 Temp Pulse Resp BP Pulse Ox 99.0 F 120 H 16 119/76 94 05/15/19 18:03 05/15/19 16:55 05/15/19 18:03 05/15/19 18:02 05/15/19 18:03 Laboratory 05/15/19 05/15/19 05/15/19 17:20 17:20 17:20 WBC Cancelled RBC Cancelled Hgb Cancelled Hct Cancelled MCV Cancelled MCH Cancelled MCHC Cancelled RDW Cancelled Plt Count Cancelled Lymph % (Auto) Cancelled Perry % (Auto) Cancelled Eos % (Auto) Cancelled Baso % (Auto) Cancelled Absolute Neuts (auto) Cancelled Absolute Lymphs (auto) Cancelled Absolute Monos (auto) Cancelled Absolute Eos (auto) Cancelled Absolute Basos (auto) Cancelled Seg Neutrophils % Cancelled Platelet Estimate Cancelled PT 14.1 INR 1.09 VBG pH VBG pCO2 VBG HCO3 VBG Base Excess Sodium 140.2 Potassium 4.0 Chloride 103 Carbon Dioxide 26 Anion Gap 11 BUN 9 Creatinine 0.72 Est GFR ( Amer) > 60 Est GFR (MDRD) Non-Af > 60 Glucose 123 H Lactic Acid Calcium 9.7 Total Bilirubin 0.6 Direct Bilirubin 0.3 Neonat Total Bilirubin Not Reportable Neonat Direct Bilirubin Not Reportable Neonat Indirect Bili Not Reportable AST 36 ALT 59 Alkaline Phosphatase 101 Total Protein 7.5 Albumin 4.7 Serum HCG, Qual Slides for Path Review Cancelled 05/15/19 05/15/19 05/15/19 17:20 17:20 17:20 WBC RBC Hgb Hct MCV MCH MCHC RDW Plt Count Lymph % (Auto) Perry % (Auto) Eos % (Auto) Baso % (Auto) Absolute Neuts (auto) Absolute Lymphs (auto) Absolute Monos (auto) Absolute Eos (auto) Absolute Basos (auto) Seg Neutrophils % Platelet Estimate PT INR VBG pH 7.48 H VBG pCO2 36.1 VBG HCO3 26.0 VBG Base Excess 2.7 Sodium Potassium Chloride Carbon Dioxide Anion Gap BUN Creatinine Est GFR ( Amer) Est GFR (MDRD) Non-Af Glucose Lactic Acid 1.7 Calcium Total Bilirubin Direct Bilirubin Neonat Total Bilirubin Neonat Direct Bilirubin Neonat Indirect Bili AST ALT Alkaline Phosphatase Total Protein Albumin Serum HCG, Qual NEGATIVE Slides for Path Review 05/15/19 17:53 WBC 13.2 H RBC 4.46 Hgb 13.9 Hct 40.6 MCV 91 MCH 31.2 MCHC 34.2 RDW 14.3 H Plt Count 147 L Lymph % (Auto) 13.4 Perry % (Auto) 7.2 Eos % (Auto) 0.5 Baso % (Auto) 0.5 Absolute Neuts (auto) 10.3 H Absolute Lymphs (auto) 1.8 Absolute Monos (auto) 1.0 Absolute Eos (auto) 0.1 Absolute Basos (auto) 0.1 Seg Neutrophils % 78.4 H Platelet Estimate PT INR VBG pH VBG pCO2 VBG HCO3 VBG Base Excess Sodium Potassium Chloride Carbon Dioxide Anion Gap BUN Creatinine Est GFR ( Amer) Est GFR (MDRD) Non-Af Glucose Lactic Acid Calcium Total Bilirubin Direct Bilirubin Neonat Total Bilirubin Neonat Direct Bilirubin Neonat Indirect Bili AST ALT Alkaline Phosphatase Total Protein Albumin Serum HCG, Qual Slides for Path Review ED course: History: 38-year-old female presents with cellulitis to her abdominal wall that started yesterday Patient evaluated. Vital signs were reviewed. Patient is tachycardic, febrile. Previous medical records and nursing notes reviewed. Patient does not appear toxic or dehydrated they are in no acuted distress Exam Findings: 15 x 9 cm area of erythema and warmth to the abdominal wall without associated induration or fluctuance. Lab Findings: CBC a leukocytosis of 13. Anemia. CMP shows no electrolte abnormalities and normal renal function, it does show hyperglycemia without evidence of DKA.. LFTs WNL. UA not consistent with UTI. Lactate within normal limits. VBG unremarkable. EKG: Patient Interventions/Monitor: IV fluids, Tylenol, Toradol, Dilaudid, doxycycline. Revaluation: Patient has been reevaluated multiple times and reports improvement of her pain. Her tachycardia has improved. Fever has now resolved. She was able to tolerate doxycycline. Patient will be discharged home with doxycycline, Zofran. She was advised to take Motrin for her fever. MDM: Patient presents with symptoms most consistent with an acute cellulitis. Vitals within normal limits. Patient does not meet sepsis criteria is overall very well in appearance. Exam and history are not consistent with DVT. Patient will be started on coverage for both staph and strep. At this time will discharge with return precautions and follow-up recommendations. Verbal discharge instructions given a the bedside and opportunity for questions given. Medication warnings reviewed. Patient is in agreement with this plan and has verbalized understanding of return precautions and the need for primary care follow-up in the next 24-72 hours. - Vital Signs Vital signs: Temp Pulse Resp BP Pulse Ox 98.6 F 120 H 16 113/64 94 05/15/19 20:00 05/15/19 16:55 05/15/19 20:00 05/15/19 20:00 05/15/19 20:00 - Laboratory Result Diagrams: 05/15/19 17:53 05/15/19 17:20 Laboratory results interpreted by me: 05/15/19 05/15/19 05/15/19 17:20 17:20 17:53 WBC 13.2 H RDW 14.3 H Plt Count 147 L Absolute Neuts (auto) 10.3 H Seg Neutrophils % 78.4 H VBG pH 7.48 H Glucose 123 H Urine Blood Urine Urobilinogen Ur Leukocyte Esterase 05/15/19 19:40 WBC RDW Plt Count Absolute Neuts (auto) Seg Neutrophils % VBG pH Glucose Urine Blood SMALL H Urine Urobilinogen 2.0 H Ur Leukocyte Esterase TRACE H - Diagnostic Test Radiology reviewed: Image reviewed, Reports reviewed - EKG Interpretation by Me EKG shows normal: Sinus rhythm Rate: Tachycardia Rhythm: NSR When compared to previous EKG there are: No significant change Discharge - Discharge Clinical Impression: Cellulitis, abdominal wall Fever Qualifiers: Fever type: unspecified Qualified Code(s): R50.9 - Fever, unspecified Condition: Good Disposition: HOME, SELF-CARE Instructions: Cellulitis ([facility]), Fever ([facility]) Additional Instructions: The rash is likely due to infection of your skin. You need to take the antibiotics as prescribed. Do not stop even if the rash goes away until you have completed all the antibiotics. The area of redness was traced out here in the emergency department with a marking pen. You need to return to emergency department if the redness spreads outside of this area by more than 2 cm in any direction. You should also return if you develop fevers with temperature greater than 102., persistent vomiting, worsening pain, or have any other symptoms that are concerning to you. Follow up with your -73 hours for further care or return to the ED IMMEDIATELY if symptoms worsen or you have any concerns. If you cannot afford to follow up with your primary care physician a list of low cost clinics have been provided at the end of your discharge papers as well. Most prescribed medications have multiple side effects. The safest thing to do is when filling your prescription speak to your pharmacist regarding possible interactions with your normal home medications and over the counter medications such as Ibuprofen, Tylenol, Benadryl. If you experience any symptoms that cause you discomfort or concern you should discontinue the medication immediately and return to the emergency room or call your primary care physician. Prescriptions: Doxycycline Hyclate 100 mg PO BID 7 Days #14 capsule Ibuprofen [Motrin 600 Mg Tablet] 600 mg PO TID #15 tablet Ondansetron [Zofran Odt 4 mg Tablet] 1 - 2 tab PO Q4H PRN #15 tab.rapdis PRN Reason: For Nausea/Vomiting Referrals: WILTON PAZ MD [NO LOCAL MD] - Follow up in 3-5 days
[2019-05-15] MEDS ORDERED: RINGERS SOLUTION,LACTATED 1,000 ML IV ONE (19:33)
[2019-05-15 20:13] LABS: APPEARANCE,URINE CLEAR; BILIRUBIN,URINE NEGATIVE (NEGATIVE); COLOR,URINE YELLOW; GLUCOSE, URINE NEGATIVE (NEGATIVE); KETONES,URINE NEGATIVE (NEGATIVE); LEUKOCYTE ESTERASE,URINE TRACE (NEGATIVE); NITRITE,URINE NEGATIVE (NEGATIVE); PROTEIN,URINE NEGATIVE (NEGATIVE); URINE SPECIFIC GRAVITY 1.013
[2019-05-15 21:20] VITALS: BP 109/69
--- NOTE | 2019-05-16 00:17 | EKG REPORT ---
SEVERITY:- OTHERWISE NORMAL ECG - SINUS TACHYCARDIA : Confirmed by: Melissa Zafar MD 16-May-2019 00:15:33
== END 2019-05-15 21:29 | disposition home or self-care (01) ==
LOC: ER 16:39
DX: L03.311 Cellulitis of abdominal wall (principal); R50.9 Fever, unspecified; I10 Essential (primary) hypertension; M79.10 Myalgia, unspecified site; C95.91 Leukemia, unspecified, in remission; Z88.3 Allergy status to other anti-infective agents
CPT/HCPCS: 93005; 99283; 96361; 96374; 96375; 36415; 87040; 87086; 84703; 85025; 85610; 80053; 81001; 82803; 83605; 71046; 93010; J1885; J1170; J2405; J7030; J7120

== ENCOUNTER 2019-11-16 12:44 | Emergency (ER) | payer BC ==
--- NOTE | 2019-11-16 15:28 | ER Document Report ---
ED Medical Screen (RME) - General Chief Complaint: Chest Pain Stated Complaint: DIZZY/NAUSEA/HIGH HEART RATE - REFERRED Time Seen by Provider: 11/16/19 15:18 Primary Care Provider: JULIUS WAGONER NP [Primary Care Provider] - Follow up as needed Notes: HPI: 38-year-old female with history of leukemia with bone marrow transplant 5 years ago at [facility] who has been in remission and is not currently on immune modulators presenting for tachycardia with chest pain today. Patient states 3 weeks ago she was following with her PCP and had an episode of tachycardia where her heart rate went into the 130s. This resolved on its own. Today patient developed left-sided chest discomfort and pressure that has been constant throughout the day with elevation of her heart rate again. Patient has not had a fever or cough but states it does hurt in the left chest to take a deep breath in. Patient also complaining of left lower quadrant pain intermittently for a month, states she has diverticulitis history and believes she is also having a diverticulitis flareup I have greeted and performed a rapid initial assessment of this patient. A comprehensive ED assessment and evaluation of the patient, analysis of test resu lts and completion of the medical decision making process will be conducted by additional ED providers PHYSICAL EXAMINATION: GENERAL: Well-appearing, well-nourished and in mild acute distress. HEAD: Atraumatic, normocephalic. EYES: sclera anicteric, conjunctiva are normal. ENT: Moist mucous membranes. NECK: Normal range of motion LUNGS: Normal work of breathing, clear to auscultation HEART: 2+ radial pulses bilaterally, tachycardic ABD: limited by positioning for exam in triage. Mild tenderness in the left lower quadrant on palpation EXTREMITIES: no pitting or edema. No cyanosis. NEUROLOGICAL: No focal neurological deficits. Moves all extremities spontaneously and on command. PSYCH: Normal mood, normal affect. SKIN: Warm, Dry, normal turgor, no rashes or lesions noted. TRAVEL OUTSIDE OF THE [place] IN LAST 30 DAYS: No - Related Data Allergies/Adverse Reactions: metronidazole [From Flagyl] Allergy (Severe, Verified 12/11/16 10:11) Urticaria Metronidazole HCl [From Flagyl] Allergy (Severe, Verified 12/11/16 10:11) Urticaria levofloxacin [From Levaquin] Allergy (Verified 12/12/16 05:37) sulfamethoxazole [From Bactrim] Allergy (Verified 12/12/16 05:37) trimethoprim [From Bactrim] Allergy (Verified 12/12/16 05:37) amoxicillin Adverse Reaction (Verified 11/16/19 15:11) Nausea Home Medications: Wellbutrin Past Medical History - Social History Frequency of alcohol use: Occasional Drug Abuse: None - Past Medical History Cardiac Medical History: Reports: Hx Hypertension Denies: Hx Coronary Artery Disease, Hx Heart Attack Pulmonary Medical History: Reports: Hx Bronchitis, Hx Pneumonia Denies: Hx Asthma, Hx COPD Neurological Medical History: Denies: Hx Cerebrovascular Accident, Hx Seizures Renal/ Medical History: Denies: Hx Peritoneal Dialysis GI Medical History: Reports: Hx Diverticulitis, Hx Gastroesophageal Reflux Disease Musculoskeltal Medical History: Denies Hx Arthritis Past Surgical History: Reports: Hx Abdominal Surgery - Sigmoid colectomy for diverticulitis and lap band procedure, Hx Orthopedic Surgery - wrist - Immunizations Hx Diphtheria, Pertussis, Tetanus Vaccination: No Physical Exam - Vital signs Vitals: Temp Pulse Resp BP Pulse Ox 98.5 F 113 H 20 136/85 H 99 11/16/19 12:48 11/16/19 12:48 11/16/19 12:48 11/16/19 12:48 11/16/19 12:48 Course - Vital Signs Vital signs: Temp Pulse Resp BP Pulse Ox 98.5 F 113 H 20 136/85 H 99 11/16/19 12:48 11/16/19 12:48 11/16/19 12:48 11/16/19 12:48 11/16/19 12:48 Doctor's Discharge - Discharge Referrals: JULIUS WAGONER NP [Primary Care Provider] - Follow up as needed
[2019-11-16 16:12] LABS: ABSOLUTE EOSINOPHILS # (AUTO) 0.2 10^3/uL (0.0-0.6); ABSOLUTE LYMPHOCYTES (AUTO) 2.3 10^3/uL (0.5-4.7); ABSOLUTE MONOCYTES (AUTO) 0.5 10^3/uL (0.1-1.4); ABSOLUTE NEUT (AUTO) 7.1 10^3/uL (1.7-8.2); BASOPHILS % (AUTO) 0.3 % (0-2); HEMATOCRIT 39.9 % (36.0-47.0); HEMOGLOBIN 14.5 g/dL (12.0-15.5); LYMPHOCYTES % (AUTO) 22.6 % (13-45); MEAN CORPUSCULAR HEMOGLOBIN 32.4 pg (27.0-33.4); MEAN CORPUSCULAR HGB CONC 36.3 g/dL (32.0-36.0); MEAN CORPUSCULAR VOLUME 89 fl (80-97); MONOCYTES % (AUTO) 5.3 % (3-13); PLATELET COUNT 213 10^3/uL (150-450); RED BLOOD COUNT 4.47 10^6/uL (3.72-5.28); RED CELL DISTRIBUTION WIDTH 15.2 % (11.5-14.0); SEGMENTED NEUTROPHILS % (AUTO) 69.8 % (42-78); TOTAL CELLS COUNTED % (AUTO) 100 %; WHITE BLOOD COUNT 10.2 10^3/uL (4.0-10.5)
--- NOTE | 2019-11-16 16:22 | RADIOLOGY REPORT (SQ) ---
EXAM DESCRIPTION: CHEST 2 VIEWS COMPLETED DATE/TIME: 11/16/2019 4:09 pm REASON FOR STUDY: chest pain COMPARISON: 05/15/2019 EXAM PARAMETERS: NUMBER OF VIEWS: two views TECHNIQUE: Digital Frontal and Lateral radiographic views of the chest acquired. RADIATION DOSE: NA LIMITATIONS: none FINDINGS: LUNGS AND PLEURA: No opacities, masses or pneumothorax. No pleural effusion. MEDIASTINUM AND HILAR STRUCTURES: No masses or contour abnormalities. HEART AND VASCULAR STRUCTURES: Heart normal size. No evidence for failure. BONES: No acute findings. HARDWARE: None in the chest. OTHER: No other significant finding. IMPRESSION: NO ACUTE RADIOGRAPHIC FINDING IN THE CHEST. TECHNICAL DOCUMENTATION: JOB ID: [id number] 2010 [employer]- All Rights Reserved Reading location - IP/workstation name: [email or web address]
[2019-11-16 16:29] LABS: ALBUMIN 4.7 g/dL (3.5-5.0); ALKALINE PHOSPHATASE 108 U/L (38-126); ANION GAP 15 (5-19); ASPARTATE AMINO TRANSFERASE 30 U/L (14-36); BILIRUBIN,DIRECT 0.1 mg/dL (0.0-0.4); BILIRUBIN,TOTAL 0.6 mg/dL (0.2-1.3); BLOOD UREA NITROGEN 14 mg/dL (7-20); CALCIUM 9.8 mg/dL (8.4-10.2); CARBON DIOXIDE 19 mmol/L (22-30); CHLORIDE 105 mmol/L (98-107); GLUCOSE 83 mg/dL (75-110); POTASSIUM 4.3 mmol/L (3.6-5.0)
[2019-11-16 16:44] LABS: APPEARANCE,URINE CLEAR; BILIRUBIN,URINE NEGATIVE (NEGATIVE); COLOR,URINE YELLOW; GLUCOSE, URINE NEGATIVE (NEGATIVE); KETONES,URINE 20 mg/dL (NEGATIVE); LEUKOCYTE ESTERASE,URINE NEGATIVE (NEGATIVE); NITRITE,URINE NEGATIVE (NEGATIVE); PROTEIN,URINE NEGATIVE (NEGATIVE); UROBILINOGEN,URINE NEGATIVE mg/dL (<2.0)
--- NOTE | 2019-11-16 18:23 | EKG REPORT ---
SEVERITY:- NORMAL ECG - SINUS RHYTHM [Now Present] [Now Absent] SINUS TACHYCARDIA : Confirmed by: Melissa Zafar MD 16-Nov-2019 18:22:24
--- NOTE | 2019-11-16 18:48 | RADIOLOGY REPORT (SQ) ---
EXAM DESCRIPTION: CT ABD/PELVIS WITH IV ONLY COMPLETED DATE/TIME: 11/16/2019 6:35 pm REASON FOR STUDY: LLQ pain COMPARISON: None. TECHNIQUE: CT scan of the abdomen and pelvis performed using helical scanning technique with dynamic intravenous contrast injection. No oral contrast. Images reviewed with lung, soft tissue, and bone windows. Reconstructed coronal and sagittal MPR images reviewed. Delayed images for evaluation of the urinary system also acquired. All images stored on PACS. All CT scanners at this facility use dose modulation, iterative reconstruction, and/or weight based d osing when appropriate to reduce radiation dose to as low as reasonably achievable (ALARA). [facility]: Dose Right [facility]: CareDose [facility]: Dose Right [facility]: Teradose 4D [facility]: Business Texter CONTRAST TYPE AND DOSE: Omnipaque 350 135 cc RENAL FUNCTION: None required. The patient is less than 50 years old. RADIATION DOSE: . LIMITATIONS: None. FINDINGS: LOWER CHEST: See separate report of the CT of the chest. LIVER: Normal size. No masses. No dilated ducts. SPLEEN: Normal size. No focal lesions. PANCREAS: No masses. No significant calcifications. No adjacent inflammation or peripancreatic fluid collections. Pancreatic duct not dilated. GALLBLADDER: Distended gallbladder measuring 4.3 cm transversely. No definite wall thickening or rad iopaque stones. ADRENAL GLANDS: No significant masses or asymmetry. RIGHT KIDNEY AND URETER: No solid masses. No significant calcifications. No hydronephrosis or hyd roureter. LEFT KIDNEY AND URETER: No solid masses. No significant calcifications. No hydronephrosis or hydr oureter. AORTA AND VESSELS: No aneurysm. No dissection. Renal arteries, SMA, celiac without stenosis. RETROPERITONEUM: No retroperitoneal adenopathy, hemorrhage or masses. BOWEL AND PERITONEAL CAVITY: No evidence of intestinal obstruction. No focal bowel wall thickening. Evidence of prior resection with chain staple line at the level of the sigmoid colon. APPENDIX: Not clearly identified. PELVIS: No mass. No free fluid. Normal bladder. ABDOMINAL WALL: No masses. No hernias. BONES: No acute bony abnormality. No suspicious lytic or blastic osseous lesions. OTHER: No other significant finding. IMPRESSION: 1. Mildly distended gallbladder without wall thickening or additional evidence of ronan cystitis. Recommend correlation with patient symptoms. 2. No other evidence of acute intra-abdominal/pelvic process. TECHNICAL DOCUMENTATION: JOB ID: [id number] Quality ID # [id number]: Final reports with documentation of one or more dose reduction techniques (e.g., Au tomated exposure control, adjustment of the mA and/or kV according to patient size, use of iterative reconstruction technique) 2010 [employer]- All Rights Reserved Reading location - IP/workstation name: [email or web address]
--- NOTE | 2019-11-16 18:51 | RADIOLOGY REPORT (SQ) ---
EXAM DESCRIPTION: CTA CHEST COMPLETED DATE/TIME: 11/16/2019 6:35 pm REASON FOR STUDY: eval for PE COMPARISON: None. TECHNIQUE: CT scan of the chest performed using helical scanning technique with dynamic intravenous contrast injection. Images reviewed with lung, soft tissue and bone windows. Reconstructed coronal and sagittal MPR images reviewed. Additional 3 dimensional post-processing performed to develop Maximal Intensity Projection images (MO P). All images stored on PACS. All CT scanners at this facility use dose modulation, iterative reconstruction, and/or weight based d osing when appropriate to reduce radiation dose to as low as reasonably achievable (ALARA). [facility]: Dose Right [facility]: CareDose [facility]: Dose Right [facility]: Teradose 4D [facility]: Hard Candy Cases CONTRAST TYPE AND DOSE: contrast/concentration: Isovue 350.00 mg/ml; Total Contrast Delivered: 135.6 ml; Total Saline Delivered: 72.3 ml Contrast bolus adequate for pulmonary arteries and aorta. RENAL FUNCTION: None required. The patient is less than 50 years old. RADIATION DOSE: CT Rad equipment meets quality standard of care and radiation dose reduction techniq ues were employed. CTDIvol: 6.6 - 26.7 mGy. DLP: 4139 mGy-cm. . LIMITATIONS: None. FINDINGS: LUNGS AND PLEURA: No masses, infiltrates, or pneumothorax. No pleural effusions or pleura l calcifications. AORTA AND GREAT VESSELS: No aneurysm. Contrast bolus not optimized for the aorta. HEART: No pericardial effusion. No significant coronary artery calcifications. PULMONARY ARTERIES: No emboli visualized in the main pulmonary arteries or the segmental branches. HILAR AND MEDIASTINAL STRUCTURES: No identified masses or abnormal nodes. HARDWARE: None in the chest. UPPER ABDOMEN: See separate report of the CT of the abdomen. THYROID AND OTHER SOFT TISSUES: No masses. No adenopathy. BONES: No acute or significant finding. 3D MIPS: Confirm above findings. OTHER: No other significant finding. IMPRESSION: No evidence of pulmonary embolus or other acute intrathoracic process. COMMENT: Quality ID # [id number]: Final reports with documentation of one or more dose reduction techniques (e.g., Automated exposure control, adjustment of the mA and/or kV according to patient size, use of iterative reconstruction technique) TECHNICAL DOCUMENTATION: JOB ID: [id number] 2010 [employer]- All Rights Reserved Reading location - IP/workstation name: [email or web address]
--- NOTE | 2019-11-16 20:42 | ER Document Report ---
ED General - General Chief Complaint: Chest Pain Stated Complaint: DIZZY/NAUSEA/HIGH HEART RATE - DR REFERRED Time Seen by Provider: 11/16/19 15:18 Primary Care Provider: JULIUS WAGONER NP [Primary Care Provider] - Follow up as needed TRAVEL OUTSIDE OF THE [place] IN LAST 30 DAYS: No - HPI Notes: Patient is a 38-year-old female who presents to the emergency department for evaluation. She has been seen by her primary care provider for an episode of tachycardia she had a few weeks ago. Today she was sitting at rest on her Apple Watch stated that her heart rate was too high. She had gone to the gym earlier and was feeling dizzy, weak, not well enough to work out. She then developed chest pain in the center to left side of her chest. It did not radiate. She continued to have intermittent palpitations and difficulty breathing with it. She states she also has pain in her left lower quadrant. She had some pain in her right back which he believes secondary to her gallbladder. She has been told multiple times that she has gallbladder issues, but no one is willing to take it out at this point. She still has some chest pain, she describes it as dull, states that it is much improved over where it was initially. - Related Data Allergies/Adverse Reactions: metronidazole [From Flagyl] Allergy (Severe, Verified 12/11/16 10:11) Urticaria Metronidazole HCl [From Flagyl] Allergy (Severe, Verified 12/11/16 10:11) Urticaria levofloxacin [From Levaquin] Allergy (Verified 12/12/16 05:37) sulfamethoxazole [From Bactrim] Allergy (Verified 12/12/16 05:37) trimethoprim [From Bactrim] Allergy (Verified 12/12/16 05:37) amoxicillin Adverse Reaction (Verified 11/16/19 15:11) Nausea Home Medications: Wellbutrin, PPI, Celexa Past Medical History - General Information source: Patient - Social History Smoking Status: Never Smoker Frequency of alcohol use: Occasional Drug Abuse: None Family History: DM, Hypertension Patient has suicidal ideation: No Patient has homicidal ideation: No - Past Medical History Cardiac Medical History: Reports: Hx Hypertension Denies: Hx Coronary Artery Disease, Hx Heart Attack Pulmonary Medical History: Reports: Hx Bronchitis, Hx Pneumonia Denies: Hx Asthma, Hx COPD Neurological Medical History: Denies: Hx Cerebrovascular Accident, Hx Seizures Renal/ Medical History: Denies: Hx Peritoneal Dialysis Malignancy Medical History: 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 GI Medical History: Reports: Hx Diverticulitis, Hx Gastroesophageal Reflux Disease Musculoskeletal Medical History: Denies Hx Arthritis Past Surgical History: Reports: Hx Abdominal Surgery - Sigmoid colectomy for diverticulitis and lap band procedure, Hx Orthopedic Surgery - wrist - Immunizations Hx Diphtheria, Pertussis, Tetanus Vaccination: No Review of Systems - Review of Systems Constitutional: See HPI Cardiovascular: See HPI Gastrointestinal: See HPI -: Yes All other systems reviewed and negative Physical Exam - Vital signs Vitals: Temp Pulse Resp BP Pulse Ox 98.5 F 113 H 20 136/85 H 99 11/16/19 12:48 11/16/19 12:48 11/16/19 12:48 11/16/19 12:48 11/16/19 12:48 - Notes Notes: Vital signs reviewed, please refer to chart. Head is normocephalic, atraumatic. Pupils equal round, reactive to light. Neck is supple without meningismus. Hea rt is regular rate and rhythm. Lungs are clear to auscultation bilaterally. Chest wall is tender to palpation over the area of pain. Abdomen is soft, nontender, normoactive bowel sounds throughout. Extremities without cyanosis, clubbing. Posterior calves are nontender. Peripheral pulses are equal. Skin is warm and dry. Patient is awake, alert, neurological exam is nonfocal. Course - Re-evaluation Re-evalutation: 11/16/19 20:45 Patient presents to the emergency department for evaluation of multiple issues. She complained of abdominal pain, chest pain, dizziness, palpitations. She was mildly tachycardic upon arrival, but is not been tachycardic since then. Her resting heart rate has been in the 80s throughout the course of her stay. Her blood pressures have been stable. Patient is obese with a family history of coronary artery disease, but these are her only risk factors. Her troponins are negative x2. Her CT scan of the abdomen pelvis failed to reveal any signs of blood clot, problems with her aorta. There is no signs of diverticulitis. Patient's gallbladder is mildly distended, but this is not new, and she does not have any right upper quadrant tenderness. At this point, the patient already has a primary care provider appointment tomorrow. She is urged to keep this. We did discuss that she should consider an outpatient stress test for further evaluation, and certainly return if her pain worsens. She voiced understanding to this and was discharged. - Vital Signs Vital signs: Temp Pulse Resp BP Pulse Ox 98.5 F 113 H 21 H 122/80 96 11/16/19 12:48 11/16/19 12:48 11/16/19 19:38 11/16/19 19:38 11/16/19 19:38 - Laboratory Result Diagrams: 11/16/19 15:45 11/16/19 15:45 Laboratory results interpreted by me: 11/16/19 11/16/19 11/16/19 15:45 15:45 16:00 MCHC 36.3 H RDW 15.2 H Carbon Dioxide 19 L Urine Ketones 20 H Urine Blood SMALL H - Diagnostic Test Radiology reviewed: Reports reviewed Radiology results interpreted by me: 11/16/19 20:46 Chest X-Ray 11/16/19 15:23 IMPRESSION: NO ACUTE RADIOGRAPHIC FINDING IN THE CHEST. Chest/Abdomen CTA 11/16/19 15:24 IMPRESSION: No evidence of pulmonary embolus or other acute intrathoracic process. Abdomen/Pelvis CT 11/16/19 15:25 IMPRESSION: 1. Mildly distended gallbladder without wall thickening or additional evidence of cholecystitis. Recommend correlation with patient symptoms. 2. No other evidence of acute intra-abdominal/pelvic process. - EKG Interpretation by Me Additional EKG results interpreted by me: 11/16/19 20:47 Sinus mechanism with rate of 92 bpm. Normal axis and intervals. No acute ST changes concerning for ischemia or infarction. Discharge - Discharge Clinical Impression: Tachycardia, Left lower quadrant abdominal pain, Dizziness Chest pain Qualifiers: Chest pain type: unspecified Qualified Code(s): R07.9 - Chest pain, unspecified Condition: Stable Disposition: HOME, SELF-CARE Instructions: Abdominal Pain ([facility]), Chest Pain of Unclear Cause ([facility]), Dizziness ([facility]) Additional Instructions: No clear cause was found for your pain or palpitations today. Your cardiac enzymes were normal. Your CT scans were unremarkable. Please follow-up with your primary care provider as scheduled tomorrow. If you develop worsening or new concerning symptoms of any sort, please return immediately to the emergency department for evaluation. Referrals: JULIUS WAGONER NP [Primary Care Provider] - Follow up as needed
[2019-11-16 21:08] VITALS: BP 120/78
== END 2019-11-16 21:08 | disposition home or self-care (01) ==
LOC: ER 12:44
DX: R07.9 Chest pain, unspecified (principal); R42 Dizziness and giddiness; R00.0 Tachycardia, unspecified; R10.32 Left lower quadrant pain; R11.0 Nausea; R53.1 Weakness; M54.9 Dorsalgia, unspecified; I10 Essential (primary) hypertension; Z88.8 Allergy status to other drugs, medicaments and biological substances; Z88.1 Allergy status to other antibiotic agents; Z88.2 Allergy status to sulfonamides
CPT/HCPCS: 36415; 71046; 71275; 74177; 80053; 81001; 81025; 84443; 84484; 85025; 93005; 93010; 99285

== ENCOUNTER 2019-11-26 06:34 | Observation (INO) | payer BC ==
[2019-11-26] MEDS ORDERED: ONDANSETRON HCL INJ/PF 4 MG/2 ML SDV IV ONE (07:53)
[2019-11-26] MEDS ORDERED: KETOROLAC TROMETHAMINE INJ/PF 30 MG/1 ML SDV IV ONE (07:54)
[2019-11-26] MEDS ORDERED: HYDROMORPHONE HCL INJ/PF 2 MG/ML AMPULE IV ONE ×2 (07:54→10:15)
[2019-11-26] MEDS ORDERED: NORMAL SALINE 1000 ML 1,000 ML IV ONE (07:55)
--- NOTE | 2019-11-26 07:57 | ER Document Report ---
ED GI/ - General Chief Complaint: Flank Pain Stated Complaint: SEVERE UPPER ABDOMINAL PAIN, NAUSEA,VOMITING Time Seen by Provider: 11/26/19 07:39 Notes: 39-year-old woman presents to the emergency department with a complaint of awoke this morning early with right upper quadrant abdominal pain. She describes the pain as sharp and severe with radiation of pain into her back. She has known gallstones. She denies fever, diarrhea or other GI symptoms. TRAVEL OUTSIDE OF THE [place] IN LAST 30 DAYS: No - Related Data Allergies/Adverse Reactions: metronidazole [From Flagyl] Allergy (Severe, Verified 12/11/16 10:11) Urticaria Metronidazole HCl [From Flagyl] Allergy (Severe, Verified 12/11/16 10:11) Urticaria levofloxacin [From Levaquin] Allergy (Verified 12/12/16 05:37) sulfamethoxazole [From Bactrim] Allergy (Verified 12/12/16 05:37) trimethoprim [From Bactrim] Allergy (Verified 12/12/16 05:37) amoxicillin Adverse Reaction (Verified 11/16/19 15:11) Nausea Home Medications: wellbutrin 150mg ER. nexium 40mg. celexa 40mg. trazepam. 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 HENT: Negative for sore throat. Eyes: Negative for visual changes. Cardiovascular: Negative for chest pain. Respiratory: Negative for shortness of breath. Gastrointestinal: + Right upper quadrant pain, + nausea vomiting Genitourinary: Negative for dysuria. Musculoskeletal: Negative for back pain. Skin: Negative for rash. Neurological: Negative for headaches, weakness or numbness. 10 point ROS negative except as marked above and in HPI. Physical Exam - Vital signs Vitals: Temp Pulse Resp BP Pulse Ox 98.1 F 91 22 H 130/85 H 99 11/26/19 06:39 11/26/19 06:39 11/26/19 06:39 11/26/19 06:39 11/26/19 06:39 - Notes Notes: PHYSICAL EXAMINATION: Physical Exam: General: Well-nourished well-developed 39-year-old female in moderate distress secondary to pain HEENT: NC/AT, pupils equal round and reactive to light, MM moist,nares clear, oropharynx clear, airway patent Neck: supple, no adenopathy, no masses. Good range of motion Lungs: clear, no wheezing, no rales no rhonchi CVS: Regular rate and rhythm no murmur gallop or rub Abdomen: Soft, active, and and is in the right upper quadrant, guarding, no rebound, no mass + Beaulieu sign Ext: No edema, clubbing or cyanosis. Neuro: Alert and responsive, moving all 4 extremities on command, cranial nerves intact, no focal findings Skin: Intact no open lesions, no rash PSYCH: Normal mood, normal affect. Course - Re-evaluation Re-evalutation: 11/26/19 12:12 39-year-old woman states that she would like to have her gallbladder taken out she is tired of having episodes of pain, I did speak with the surgeon on-call Dr. Cormier he will see the patient in the emergency department and gallbladder ultrasound is being performed in the emergency department. - Vital Signs Vital signs: Temp Pulse Resp BP Pulse Ox 98.0 F 83 16 121/77 98 11/26/19 10:31 11/26/19 10:31 11/26/19 10:31 11/26/19 10:31 11/26/19 10:31 - Laboratory Result Diagrams: 11/26/19 07:40 11/26/19 07:40 Laboratory results interpreted by me: 11/26/19 11/26/19 11/26/19 07:40 07:40 07:40 WBC 10.7 H RDW 15.7 H Chloride 109 H Glucose 111 H AST 120 H ALT 77 H Lipase 301.7 H Urine Blood SMALL H Urine Urobilinogen 4.0 H I have reviewed laboratory data and used this information for the treatment decisions regarding the patient. - Diagnostic Test Radiology reviewed: Image reviewed, Reports reviewed - Gallbladder ultrasound: Cholelithiasis with cholecystitis. Discharge - Discharge Clinical Impression: Gallbladder colic Cholecystitis, acute with cholelithiasis Qualifiers: Biliary obstruction: without biliary obstruction Qualified Code(s): K80.00 - Calculus of gallbladder with acute cholecystitis without obstruction Condition: Good Disposition: ADMITTED INPATIENT Admitting Provider: Surgicalist - Dr. Cormier Unit Admitted: Surgical Floor
[2019-11-26 07:59] LABS: APPEARANCE,URINE SLIGHTLY-CLOUDY; BILIRUBIN,URINE NEGATIVE (NEGATIVE); CALCIUM OXALATE CRYSTALS,URINE TOO NUMEROUS TO CNT /HPF; COLOR,URINE AMBER; GLUCOSE, URINE NEGATIVE (NEGATIVE); KETONES,URINE NEGATIVE (NEGATIVE); LEUKOCYTE ESTERASE,URINE NEGATIVE (NEGATIVE); NITRITE,URINE NEGATIVE (NEGATIVE); PROTEIN,URINE NEGATIVE (NEGATIVE); URINE SPECIFIC GRAVITY 1.026
[2019-11-26 08:06] LABS: ABSOLUTE EOSINOPHILS # (AUTO) 0.2 10^3/uL (0.0-0.6); ABSOLUTE LYMPHOCYTES (AUTO) 1.7 10^3/uL (0.5-4.7); ABSOLUTE MONOCYTES (AUTO) 0.7 10^3/uL (0.1-1.4); ABSOLUTE NEUT (AUTO) 8.1 10^3/uL (1.7-8.2); BASOPHILS % (AUTO) 0.3 % (0-2); EOSINOPHILS % (AUTO) 1.6 % (0-6); HEMOGLOBIN 14.5 g/dL (12.0-15.5); LYMPHOCYTES % (AUTO) 15.6 % (13-45); MEAN CORPUSCULAR HEMOGLOBIN 31.7 pg (27.0-33.4); MEAN CORPUSCULAR HGB CONC 34.6 g/dL (32.0-36.0); MEAN CORPUSCULAR VOLUME 92 fl (80-97); MONOCYTES % (AUTO) 6.2 % (3-13); PLATELET COUNT 243 10^3/uL (150-450); RED BLOOD COUNT 4.59 10^6/uL (3.72-5.28); RED CELL DISTRIBUTION WIDTH 15.7 % (11.5-14.0); SEGMENTED NEUTROPHILS % (AUTO) 76.3 % (42-78); TOTAL CELLS COUNTED % (AUTO) 100 %; WHITE BLOOD COUNT 10.7 10^3/uL (4.0-10.5)
[2019-11-26 08:16] LABS: ALBUMIN 4.5 g/dL (3.5-5.0); ALKALINE PHOSPHATASE 92 U/L (38-126); ANION GAP 11 (5-19); ASPARTATE AMINO TRANSFERASE 120 U/L (14-36); BILIRUBIN,DIRECT 0.4 mg/dL (0.0-0.4); BLOOD UREA NITROGEN 16 mg/dL (7-20); CALCIUM 9.5 mg/dL (8.4-10.2); CARBON DIOXIDE 22 mmol/L (22-30); CHLORIDE 109 mmol/L (98-107); GLUCOSE 111 mg/dL (75-110); POTASSIUM 4.4 mmol/L (3.6-5.0); TOTAL PROTEIN 7.7 g/dL (6.3-8.2)
[2019-11-26] MEDS ORDERED: DICYCLOMINE HCL INJ 20 MG/2 ML AMPULE IM ONE (10:14)
[2019-11-26] MEDS ORDERED: ONDANSETRON HCL INJ/PF 4 MG/2 ML SDV IV PRN (11:40)
--- NOTE | 2019-11-26 11:53 | RADIOLOGY REPORT (SQ) ---
EXAM DESCRIPTION: U/S ABDOMEN LIMITED W/O DOP COMPLETED DATE/TIME: 11/26/2019 11:36 am REASON FOR STUDY: RUQ COMPARISON: CT scan 11/16/2019 TECHNIQUE: Dynamic and static grayscale images acquired of the abdomen and recorded on PACS. Additio karina selected color Doppler and spectral images recorded. LIMITATIONS: None. FINDINGS: PANCREAS: No masses. Visualized pancreatic duct normal caliber. LIVER: No masses. Echotexture normal. LIVER VASCULATURE: Normal directional flow of the main portal vein and hepatic veins. GALLBLADDER: Stones. Sludge. Gallbladder wall is 4.6 mm. ULTRASOUND-DETECTED COOPER'S SIGN: Negative. INTRAHEPATIC DUCTS AND COMMON DUCT: CBD and intrahepatic ducts normal caliber. No filling defects. INFERIOR VENA CAVA: Normal flow. AORTA: No aneurysm. RIGHT KIDNEY: Normal size. Normal echogenicity. No solid or suspicious masses. No hydronephrosis. No calcifications. PERITONEAL AND RIGHT PLEURAL SPACE: No ascites or effusions. OTHER: No other significant findings. IMPRESSION: Cholelithiasis and probable cholecystitis. TECHNICAL DOCUMENTATION: JOB ID: [id number] [employer]- All Rights Reserved Reading location - IP/workstation name: [email or web address]
[2019-11-26] MEDS: DEXTROSE 5%-LACTATED RINGERS 1,000 ML IV PRN (12:15)
[2019-11-26] MEDS ORDERED: LORAZEPAM INJ 2 MG/1 ML VIAL IV ONE (12:48)
[2019-11-26] MEDS: KETOROLAC TROMETHAMINE INJ/PF 30 MG/1 ML SDV IV SCH ×2 (14:17→21:25)
[2019-11-26] MEDS: DOXYCYCLINE HYCLATE 100 MG in DEXTROSE 5%-WATER 250 ML IV SCH ×2 (14:18→21:26)
[2019-11-26] MEDS: MORPHINE SULFATE 10 MG/ML INJ IV PRN ×3 (15:44→23:58)
[2019-11-26] MEDS ORDERED: ACETAMINOPHEN 1,000 MG/100 ML RTUPB IV PRN (17:06)
--- NOTE | 2019-11-26 19:35 | PDOC H&P ---
History of Present Illness Admission Date/PCP: JULIUS WAGONER NP Patient complains of: Right upper quadrant pain, nausea, vomiting. History of Present Illness: SAMMIE GARDNER is a 39 year old female with approximately 12-hour history of nausea, vomiting, and right upper quadrant pain. The patient reports eating cheese fries last night for dinner. Afterwards, she laid down to go to bed and within 1 to 2 hours, she was awakened with severe, sharp, stabbing right upper quadrant pain. The patient has had several episodes of nausea and vomiting. She has had intermittent right upper quadrant pain in the past, but nothing like this. The pain was unrelenting, and she presented to the emergency department for evaluation. Her pain radiates around her right side and into her back. Nothing makes it better or worse. The ER discovered gallstones and gallbladder wall thickening, consistent with acute cholecystitis. The patient denies chest pain, shortness of breath, fevers, chills, blurry vision, orthostasis, dizziness, headache, melena, hematochezia, hematemesis. Past Medical History Cardiac Medical History: Reports: Hypertension Denies: Coronary Artery Disease, Myocardial Infarction Pulmonary Medical History: Reports: Bronchitis, Pneumonia Denies: Asthma, Chronic Obstructive Pulmonary Disease (COPD) Neurological Medical History: Denies: Seizures Malignancy Medical History: Reports: Leukemia GI Medical History: Reports: Diverticulitis, Gastroesophageal Reflux Disease Musculoskeltal Medical History: Denies: Arthritis Hematology: Reports: Anemia - LOW HGB WHILE ON CHEMO Past Surgical History Past Surgical History: Reports: Orthopedic Surgery - wrist Social History Smoking Status: Never Smoker Frequency of Alcohol Use: None Hx Prescription Drug Abuse: No Family History Family History: DM, Hypertension Parental Family History Reviewed: Yes Children Family History Reviewed: Yes Sibling(s) Family History Reviewed.: Yes Medication/Allergy Home Medications: Citalopram Hydrobromide [Celexa 40 mg Tablet] 1 tab PO DAILY 12/11/16 Bupropion HCl [Bupropion Xl] 150 mg PO QAM 11/26/19 Lorazepam [Ativan] 2 mg PO Q12H PRN 11/26/19 Melatonin 20 mg PO QHS 11/26/19 Norethindrone-Ethin. Estradiol [Alyacen] 1 each PO DAILY 11/26/19 Temazepam [Restoril] 30 mg PO QHS 11/26/19 Allergies/Adverse Reactions: metronidazole [From Flagyl] Allergy (Severe, Verified 12/11/16 10:11) Urticaria Metronidazole HCl [From Flagyl] Allergy (Severe, Verified 12/11/16 10:11) Urticaria levofloxacin [From Levaquin] Allergy (Verified 12/12/16 05:37) sulfamethoxazole [From Bactrim] Allergy (Verified 12/12/16 05:37) trimethoprim [From Bactrim] Allergy (Verified 12/12/16 05:37) amoxicillin Adverse Reaction (Verified 11/16/19 15:11) Nausea Review of Systems Constitutional: ABSENT: anorexia, chills, fatigue, fever(s), headache(s), weakness Eyes: ABSENT: visual disturbances Ears: ABSENT: hearing changes Nose, Mouth, and Throat: ABSENT: mouth pain, sore throat Cardiovascular: ABSENT: chest pain Respiratory: ABSENT: cough, dyspnea Gastrointestinal: PRESENT: abdominal pain, bloating, nausea, vomiting Genitourinary: ABSENT: dysuria Musculoskeletal: PRESENT: back pain Integumentary: ABSENT: pruritus, rash Neurological: ABSENT: confusion, convulsions, dizziness Psychiatric: ABSENT: anxiety, depression Endocrine: ABSENT: cold intolerance, heat intolerance Hematologic/Lymphatic: ABSENT: easy bleeding, easy bruising Physical Exam Vital Signs: Temp Pulse Resp BP Pulse Ox 98.0 F 83 16 121/77 98 11/26/19 10:31 11/26/19 10:31 11/26/19 10:31 11/26/19 10:31 11/26/19 10:31 Intake & Output 11/25/19 11/26/19 11/27/19 06:59 06:59 07:59 Intake Total 1000 Balance 1000 Weight 101.6 kg General appearance: PRESENT: no acute distress, obese Head exam: PRESENT: atraumatic, normocephalic Eye exam: PRESENT: EOMI, PERRLA. ABSENT: scleral icterus Mouth exam: PRESENT: moist, neck supple Neck exam: ABSENT: meningismus, tenderness, thyromegaly, tracheal deviation Respiratory exam: PRESENT: clear to auscultation mason, unlabored. ABSENT: chest wall tenderness, tachypnea Cardiovascular exam: PRESENT: RRR Pulses: PRESENT: normal radial pulses Vascular exam: PRESENT: normal capillary refill, pallor GI/Abdominal exam: PRESENT: Beaulieu's sign, soft, tenderness - Right upper quadrant. ABSENT: distended, firm Rectal exam: PRESENT: deferred Extremities exam: ABSENT: clubbing Musculoskeletal exam: ABSENT: deformity Neurological exam: PRESENT: alert, awake, oriented to person, oriented to place, oriented to time, oriented to situation, CN II-XII grossly intact. ABSENT: motor sensory deficit Psychiatric exam: ABSENT: agitated, anxious, depressed Focused psych exam: ABSENT: delusional Skin exam: ABSENT: cyanosis, erythema, jaundice Results Laboratory Results: 11/26/19 07:40 11/26/19 07:40 11/26/19 11/26/19 11/26/19 07:40 07:40 07:40 WBC 10.7 H RBC 4.59 Hgb 14.5 Hct 42.0 MCV 92 MCH 31.7 MCHC 34.6 RDW 15.7 H Plt Count 243 Seg Neutrophils % 76.3 Sodium 141.5 Potassium 4.4 Chloride 109 H Carbon Dioxide 22 Anion Gap 11 BUN 16 Creatinine 0.60 Est GFR ( Amer) > 60 Glucose 111 H Calcium 9.5 Total Bilirubin 1.0 AST 120 H Alkaline Phosphatase 92 Total Protein 7.7 Albumin 4.5 Lipase 301.7 H Urine Color PABLO Urine Appearance SLIGHTLY-CLOUDY Urine pH 5.0 Ur Specific [place] 1.026 Urine Protein NEGATIVE Urine Glucose (UA) NEGATIVE Urine Ketones NEGATIVE Urine Blood SMALL H Urine Nitrite NEGATIVE Ur Leukocyte Esterase NEGATIVE Urine WBC (Auto) 5 Urine RBC (Auto) 3 Assessment & Plan - Diagnosis (1) Cholecystitis, acute with cholelithiasis Qualifiers: Biliary obstruction: without biliary obstruction Qualified Code(s): K80.00 - Calculus of gallbladder with acute cholecystitis without obstruction Is this a current diagnosis for this admission?: Yes - Plan Summary Plan Summary: This is a 39-year-old female with history, physical examination, and laboratory findings consistent with acute cholecystitis. I will admit the patient to hospital, start her on intravenous antibiotics, and plan for cholecystectomy. T his has been discussed with the patient at length, and she and is agreement with the treatment plan. Risks/benefits discussed, informed consent obtained, and all questions answered.
[2019-11-26] MEDS: FAMOTIDINE INJ/PF 20 MG/2 ML SDV IV SCH (21:25)
[2019-11-27] MEDS: DEXTROSE 5%-LACTATED RINGERS 1,000 ML IV PRN (04:59)
[2019-11-27] MEDS: KETOROLAC TROMETHAMINE INJ/PF 30 MG/1 ML SDV IV SCH ×3 (05:00→21:29)
[2019-11-27 05:32] LABS: ABSOLUTE EOSINOPHILS # (AUTO) 0.2 10^3/uL (0.0-0.6); ABSOLUTE LYMPHOCYTES (AUTO) 1.8 10^3/uL (0.5-4.7); ABSOLUTE MONOCYTES (AUTO) 0.4 10^3/uL (0.1-1.4); ABSOLUTE NEUT (AUTO) 3.2 10^3/uL (1.7-8.2); BASOPHILS % (AUTO) 0.3 % (0-2); EOSINOPHILS % (AUTO) 4.1 % (0-6); HEMATOCRIT 36.8 % (36.0-47.0); HEMOGLOBIN 12.9 g/dL (12.0-15.5); LYMPHOCYTES % (AUTO) 31.9 % (13-45); MEAN CORPUSCULAR HEMOGLOBIN 32.2 pg (27.0-33.4); MEAN CORPUSCULAR HGB CONC 35.1 g/dL (32.0-36.0); MEAN CORPUSCULAR VOLUME 92 fl (80-97); MONOCYTES % (AUTO) 7.5 % (3-13); PLATELET COUNT 184 10^3/uL (150-450); RED BLOOD COUNT 4.01 10^6/uL (3.72-5.28); RED CELL DISTRIBUTION WIDTH 15.6 % (11.5-14.0); SEGMENTED NEUTROPHILS % (AUTO) 56.2 % (42-78); TOTAL CELLS COUNTED % (AUTO) 100 %; WHITE BLOOD COUNT 5.7 10^3/uL (4.0-10.5)
[2019-11-27 05:44] LABS: ALBUMIN 3.6 g/dL (3.5-5.0); ALKALINE PHOSPHATASE 88 U/L (38-126); ANION GAP 10 (5-19); ASPARTATE AMINO TRANSFERASE 96 U/L (14-36); BILIRUBIN,DIRECT 1.7 mg/dL (0.0-0.4); BILIRUBIN,TOTAL 2.1 mg/dL (0.2-1.3); BLOOD UREA NITROGEN 12 mg/dL (7-20); CALCIUM 8.7 mg/dL (8.4-10.2); CARBON DIOXIDE 21 mmol/L (22-30); CHLORIDE 108 mmol/L (98-107); GLUCOSE 94 mg/dL (75-110); POTASSIUM 3.9 mmol/L (3.6-5.0); TOTAL PROTEIN 6.7 g/dL (6.3-8.2)
--- NOTE | 2019-11-27 07:49 | PDOC PROGRESS REPORT ---
Subjective Progress Note for:: 11/27/19 Subjective:: 39-year-old female omitted with acute cholecystitis. She continues to complain of pain and nausea. She denies chest pain, shortness of breath, fevers, chills, melena, hematochezia, hematemesis, blurry vision, orthostasis. Reason For Visit: ACUTE CHOLECYSTITIS Physical Exam Vital Signs: Temp Pulse Resp BP Pulse Ox 98.1 F 69 16 117/66 98 11/27/19 07:43 11/27/19 07:43 11/27/19 07:43 11/27/19 07:43 11/27/19 07:43 Intake & Output 11/26/19 11/27/19 11/28/19 05:59 06:59 06:59 Intake Total Balance Weight General appearance: PRESENT: no acute distress, cooperative, obese Head exam: PRESENT: atraumatic, normocephalic Eye exam: PRESENT: EOMI, PERRLA. ABSENT: scleral icterus Mouth exam: PRESENT: moist, neck supple Neck exam: ABSENT: meningismus, tenderness, thyromegaly, tracheal deviation Respiratory exam: PRESENT: unlabored. ABSENT: chest wall tenderness, tachypnea, wheezes Cardiovascular exam: PRESENT: RRR Pulses: PRESENT: normal radial pulses GI/Abdominal exam: PRESENT: soft, tenderness - Right upper quadrant Rectal exam: PRESENT: deferred Extremities exam: ABSENT: clubbing Musculoskeletal exam: ABSENT: deformity Neurological exam: PRESENT: alert, awake, oriented to person, oriented to place, oriented to time, oriented to situation, CN II-XII grossly intact Psychiatric exam: ABSENT: agitated, anxious, depressed Skin exam: ABSENT: cyanosis, erythema, jaundice Results Laboratory Results: 11/27/19 04:41 11/27/19 04:41 11/26/19 11/26/19 11/26/19 07:40 07:40 07:40 WBC 10.7 H RBC 4.59 Hgb 14.5 Hct 42.0 MCV 92 MCH 31.7 MCHC 34.6 RDW 15.7 H Plt Count 243 Seg Neutrophils % 76.3 Sodium 141.5 Potassium 4.4 Chloride 109 H Carbon Dioxide 22 Anion Gap 11 BUN 16 Creatinine 0.60 Est GFR ( Amer) > 60 Glucose 111 H Calcium 9.5 Total Bilirubin 1.0 AST 120 H Alkaline Phosphatase 92 Total Protein 7.7 Albumin 4.5 Lipase 301.7 H Urine Color PABLO Urine Appearance SLIGHTLY-CLOUDY Urine pH 5.0 Ur Specific [place] 1.026 Urine Protein NEGATIVE Urine Glucose (UA) NEGATIVE Urine Ketones NEGATIVE Urine Blood SMALL H Urine Nitrite NEGATIVE Ur Leukocyte Esterase NEGATIVE Urine WBC (Auto) 5 Urine RBC (Auto) 3 11/27/19 11/27/19 04:41 04:41 WBC 5.7 RBC 4.01 Hgb 12.9 Hct 36.8 MCV 92 MCH 32.2 MCHC 35.1 RDW 15.6 H Plt Count 184 Seg Neutrophils % 56.2 Sodium 139.4 Potassium 3.9 Chloride 108 H Carbon Dioxide 21 L Anion Gap 10 BUN 12 Creatinine 0.60 Est GFR ( Amer) > 60 Glucose 94 Calcium 8.7 Total Bilirubin 2.1 H AST 96 H Alkaline Phosphatase 88 Total Protein 6.7 Albumin 3.6 Lipase Urine Color Urine Appearance Urine pH Ur Specific [place] Urine Protein Urine Glucose (UA) Urine Ketones Urine Blood Urine Nitrite Ur Leukocyte Esterase Urine WBC (Auto) Urine RBC (Auto) Impressions: Abdomen Ultrasound 11/26/19 10:16 IMPRESSION: Cholelithiasis and probable cholecystitis. Assessment & Plan - Diagnosis (1) Cholecystitis, acute with cholelithiasis Qualifiers: Biliary obstruction: without biliary obstruction Qualified Code(s): K80.00 - Calculus of gallbladder with acute cholecystitis without obstruction Is this a current diagnosis for this admission?: Yes - Plan Summary Plan Summary: This is a 39-year-old female with acute cholecystitis. Plan for cholecystectomy today. The patient is in agreement with the treatment plan.
[2019-11-27] MEDS: MORPHINE SULFATE 10 MG/ML INJ IV PRN ×3 (08:10→19:37)
[2019-11-27] MEDS ORDERED: BUPIVACAINE HCL 0.25 % INJ/PF (2.5 MG/1 ML) 30 ML VIAL ONE (08:49)
[2019-11-27] MEDS ORDERED: GLUCAGON,HUMAN RECOMB 1 MG INJ ONE (08:49)
[2019-11-27] MEDS ORDERED: FENTANYL CITRATE INJ/PF 100 MCG/2 ML AMPUL IV PRN ×3 (09:29)
[2019-11-27] MEDS ORDERED: PROMETHAZINE HCL INJ 25 MG/1 ML VIAL IV PRN (09:29)
[2019-11-27] MEDS ORDERED: DIPHENHYDRAMINE HCL 50 MG/ML VIAL IV PRN (09:29)
[2019-11-27] MEDS ORDERED: MORPHINE SULFATE 10 MG/ML INJ IV PRN (09:29)
[2019-11-27] MEDS ORDERED: MEPERIDINE HCL/PF INJ 25 MG/1 ML DISP.SYRIN IV PRN (09:29)
[2019-11-27] MEDS: FAMOTIDINE INJ/PF 20 MG/2 ML SDV IV SCH ×2 (09:44→21:28)
[2019-11-27] MEDS: DOXYCYCLINE HYCLATE 100 MG in DEXTROSE 5%-WATER 250 ML IV SCH ×2 (09:45→21:28)
[2019-11-27] MEDS ORDERED: FENTANYL CITRATE INJ/PF 250 MCG/5 ML AMPULE ONE (10:39)
[2019-11-27] MEDS ORDERED: PROPOFOL INJ 200 MG/20 ML VIAL IV ONE (10:39)
[2019-11-27] MEDS ORDERED: HYDROMORPHONE HCL INJ/PF 2 MG/ML AMPULE ONE (10:39)
[2019-11-27] MEDS ORDERED: MIDAZOLAM 2 MG/2 ML INJ ONE (10:39)
[2019-11-27] MEDS ORDERED: ROCURONIUM BROMIDE INJ 50 MG/5 ML VIAL IV ONE (12:00)
[2019-11-27] MEDS ORDERED: NEOSTIGMINE METHYLSULFATE 10 MG/10 ML VIAL ONE (12:00)
[2019-11-27] MEDS ORDERED: DEXAMETHASONE SOD PHOSPHATE INJ 4 MG/1 ML VIAL ONE (12:00)
[2019-11-27] MEDS ORDERED: ONDANSETRON HCL INJ/PF 4 MG/2 ML SDV ONE (12:00)
[2019-11-27] MEDS ORDERED: GLYCOPYRROLATE 1 MG/5 ML VIAL ONE (12:00)
[2019-11-27] MEDS ORDERED: SUCCINYLCHOLINE CHLORIDE INJ 200 MG/10 ML VIAL ONE (12:00)
--- NOTE | 2019-11-27 13:11 | Operative Report ---
Nonrecallable Operative Report DATE OF SURGERY: 11/27/19 PREOPERATIVE DIAGNOSIS: Acute cholecystitis POSTOPERATIVE DIAGNOSIS: 1. Acute cholecystitis. 2. No evidence of intraductal obstruction (stricture or bile duct stone). OPERATION: 1. Laparoscopic cholecystectomy. 2. Intraoperative cholangiogram. SURGEON: LE CRUZ ANESTHESIA: GA TISSUE REMOVED OR ALTERED: Gallbladder COMPLICATIONS: None apparent ESTIMATED BLOOD LOSS: 200 cc PROCEDURE: Drains/implants: 15 [place]ese round [place] drain in the right upper quadrant. Procedure in detail: After informed consent was obtained, the patient was brought to the operating room and laid in the supine position. The area of the abdomen was prepped and draped in a normal sterile fashion. An incision was created in the supraumbilical position. Dissection was carried through the subcutaneous tissues using sharp and blunt dissection. The cicatrix was identified, grasped with a Damir clamp, and retracted upwards. The linea alba fascia was incised sharply, the abdomen was entered sharply. The balloon trocar was inserted, and pneumoperitoneum was achieved. A subxiphoid 5 mm port was then placed under direct laparoscopic visualization. 2 more 5 mm trochars were then placed in the right upper quadrant in similar fashion. Atraumatic graspers were used to grasp the gallbladder. The gallbladder was retracted cephalad and laterally. There was a dense inflammatory reaction in and around the gallbladder. The wall of the gallbladder appeared somewhat necrotic in certain areas. Dissection was begun in the triangle of Calot, however it was difficult due to the acute and chronic inflammation. Secondary to this, a dome down technique was employed. The gallbladder was freed from the liver using electrocautery and blunt dissection. Once the infundibulum was reached, the majority of the gallbladder was amputated. There were a large amount of gallstones found within the infundibulum. These were extracted. A cholangiogram catheter was then inserted into the cystic duct. A cholangiogram was obtained, showing no evidence of filling defect in the distal common bile duct. The common bile duct appeared normal in caliber. There was filling of the duodenum. There was filling of the right and left hepatic ducts and their radicles. Once the cholangiogram was identified to be normal, the cholangiogram catheter was removed. The cystic duct was then secured using a PDS Endoloop. The abdomen was then copiously irrigated and suctioned, until the effluent was clear. A 15 [place]ese round [place] drain was then inserted into the gallbladder fossa. The hilum was inspected, and found to be free of any leakage of blood or bile. The drain was sutured to the skin using 2-0 nylon. The 5 mm trochars were then removed. The supraumbilical trocar was removed, and pneumoperitoneum was relieved. The supraumbilical fascia was closed using 0 Vicryl suture in juzvan-ec-aliox fashion. The overlying skin was closed using 4-0 Vicryl Rapide suture in subcuticular fashion. A dressing was placed, and the procedure was concluded. All sponge, instrument, and needle counts were correct x2. Condition: Stable.
[2019-11-27] MEDS ORDERED: LORAZEPAM 1 MG TABLET PO PRN (13:13)
--- NOTE | 2019-11-27 14:17 | RADIOLOGY REPORT (SQ) ---
EXAM DESCRIPTION: CHOLANGIOGRAM OPERATIVE COMPLETED DATE/TIME: 11/27/2019 1:45 pm REASON FOR STUDY: GALLBLADDER REMOVAL COMPARISON: None. FLUOROSCOPY TIME: 0.5 minutes 7 images saved to PACS. TECHNIQUE: Serial images were obtained from an intraoperative cholangiogram. LIMITATIONS: None. FINDINGS: There is opacification of the bile ducts, cystic duct remnants and second portion of the d uodenum without evidence of fixed filling defect or significant extravasation. IMPRESSION: INTRAOPERATIVE CHOLANGIOGRAM. COMMENT: Quality ID 145: Final reports for procedures using fluoroscopy that document radiation exp osure indices, or exposure time and number of fluorographic images (if radiation exposure indices are not available) TECHNICAL DOCUMENTATION: JOB ID: [id number] 2010 [employer]- All Rights Reserved Reading location - IP/workstation name: [email or web address]
[2019-11-27] MEDS ORDERED: CITALOPRAM HYDROBROMIDE 20 MG TABLET PO ONE (15:00)
[2019-11-27] MEDS: HYDROCODONE/ACETAMINOPHEN 10-325 MG TABLET PO PRN ×2 (17:55→23:16)
[2019-11-27] MEDS ORDERED: MELATONIN 5 MG TABLET PO SCH (22:00)
[2019-11-27] MEDS ORDERED: TEMAZEPAM 15 MG CAPSULE PO SCH (22:00)
[2019-11-27] MEDS ORDERED: (PENDING PHARMACY ID) (Temazepam [Restoril] 30 MG) PO SCH (22:00)
[2019-11-28] MEDS: MORPHINE SULFATE 10 MG/ML INJ IV PRN (00:42)
[2019-11-28] MEDS: HYDROCODONE/ACETAMINOPHEN 10-325 MG TABLET PO PRN ×3 (03:24→12:00)
[2019-11-28] MEDS: KETOROLAC TROMETHAMINE INJ/PF 30 MG/1 ML SDV IV SCH (06:45)
[2019-11-28] MEDS ORDERED: (PENDING PHARMACY ID) (Bupropion Hcl [Bupropion Xl] 150 MG) PO SCH (08:00)
[2019-11-28 08:14] LABS: ALBUMIN 3.7 g/dL (3.5-5.0); ALKALINE PHOSPHATASE 97 U/L (38-126); ANION GAP 5 (5-19); ASPARTATE AMINO TRANSFERASE 86 U/L (14-36); BILIRUBIN,DIRECT 0.4 mg/dL (0.0-0.4); BILIRUBIN,TOTAL 0.8 mg/dL (0.2-1.3); BLOOD UREA NITROGEN 11 mg/dL (7-20); CARBON DIOXIDE 25 mmol/L (22-30); CHLORIDE 108 mmol/L (98-107); GLUCOSE 111 mg/dL (75-110); POTASSIUM 4.1 mmol/L (3.6-5.0); TOTAL PROTEIN 6.8 g/dL (6.3-8.2)
[2019-11-28] MEDS: FAMOTIDINE INJ/PF 20 MG/2 ML SDV IV SCH (09:05)
[2019-11-28] MEDS: IBUPROFEN 800 MG TABLET PO SCH ×2 (09:06→12:01)
[2019-11-28] MEDS ORDERED: CITALOPRAM HYDROBROMIDE 20 MG TABLET PO SCH (10:00)
[2019-11-28] MEDS ORDERED: NORETHINDRONE ETHIN ESTRADIOL PO SCH (10:00)
[2019-11-28] MEDS ORDERED: (PENDING PHARMACY ID) (Citalopram Hydrobromide [Celexa 40 Mg Tablet] 1 TAB) PO SCH (10:00)
--- NOTE | 2019-11-28 12:58 | PDOC DISCHARGE SUMMARY ---
General - Admit/Disc Date/PCP Admission Date/Primary Care Provider: 11/26/19 11:54 JULIUS WAGONER NP Discharge Date: 11/28/19 - Discharge Diagnosis Final Diagnosis: acute cholecystitis - Assessment Summary: This is a 39-year-old female admitted to hospital with acute cholecystitis. She was started on intravenous antibiotics and taken to the operating room for definitive surgical care. The patient underwent laparoscopic cholecystectomy without incident. She had a cholangiogram showing normal hepatobiliary ductal anatomy. She had no evidence of intraductal stone or stricture. Patient was sent to the floor stable condition. On postoperative day #1 she is ambulating, tolerating a diet, and her pain is controlled with oral pain medications. She has reached maximal hospital benefit at this time. Plan for discharge today. - Additional Information Resuscitation Status: Full Code Discharge Diet: As Tolerated Discharge Activity: Balance Activity w/Rest, No Lifting Over 10 Pounds, No Lifting/Push/Pulling Referrals: JULIUS WAGONER NP [Primary Care Provider] - Follow up as needed Prescriptions: Ibuprofen [Motrin 800 mg Tablet] 800 mg PO MEALS #42 tablet Hydrocodone/Acetaminophen [[place] 10-325 mg Tablet] 1 tab PO Q6HP PRN #20 tablet PRN Reason: Home Medications: Citalopram Hydrobromide [Celexa 40 mg Tablet] 1 tab PO DAILY 12/11/16 Bupropion HCl [Bupropion Xl] 150 mg PO QAM 11/26/19 Lorazepam [Ativan] 2 mg PO Q12H PRN 11/26/19 Melatonin 20 mg PO QHS 11/26/19 Norethindrone-Ethin. Estradiol [[place]lyacen 1-35 28 Tablet] 1 each PO DAILY 11/26/19 Temazepam [Restoril] 30 mg PO QHS 11/26/19 Hydrocodone/Acetaminophen [[place] 10-325 mg Tablet] 1 tab PO Q6HP PRN #20 tablet 11/28/19 Ibuprofen [Motrin 800 mg Tablet] 800 mg PO MEALS #42 tablet 11/28/19 Additional Information: Discharge home. Diet as tolerated. Activity: No lifting greater than 10 pounds x 2 weeks. Follow-up with me in 7 to 10 days at [facility] for drain removal. Clanton 10/3 2 5 mg p.o. every 6 hours PRN for pain. Ibuprofen 800 milligrams p.o. 3 times daily with meals. History of Present Illiness History of Present Illness: SAMMIE GARDNER is a 39 year old female with approximately 12-hour history of nausea, vomiting, and right upper quadrant pain. The patient reports eating cheese fries last night for dinner. Afterwards, she laid down to go to bed and within 1 to 2 hours, she was awakened with severe, sharp, stabbing right upper quadrant pain. The patient has had several episodes of nausea and vomiting. She has had intermittent right upper quadrant pain in the past, but nothing like this. The pain was unrelenting, and she presented to the emergency department for evaluation. Her pain radiates around her right side and into her back. Nothing makes it better or worse. The ER discovered gallstones and gallbladder wall thickening, consistent with acute cholecystitis. The patient denies chest pain, shortness of breath, fevers, chills, blurry vision, orthostasis, dizziness, headache, melena, hematochezia, hematemesis. Physical Exam Vital Signs: Temp Pulse Resp BP Pulse Ox 98.0 F 66 16 100/59 L 96 11/28/19 04:00 11/28/19 04:00 11/28/19 04:00 11/28/19 04:00 11/28/19 04:00 Intake & Output 11/27/19 11/28/19 11/29/19 06:59 06:59 06:59 Intake Total 5180 Output Total 2310 Balance 2870 Weight 104.5 kg Results Laboratory Results: WBC 5.7 10^3/uL (4.0-10.5) 11/27/19 04:41 RBC 4.01 10^6/uL (3.72-5.28) 11/27/19 04:41 Hgb 12.9 g/dL (12.0-15.5) 11/27/19 04:41 Hct 36.8 % (36.0-47.0) 11/27/19 04:41 MCV 92 fl (80-97) 11/27/19 04:41 MCH 32.2 pg (27.0-33.4) 11/27/19 04:41 MCHC 35.1 g/dL (32.0-36.0) 11/27/19 04:41 RDW 15.6 % (11.5-14.0) H 11/27/19 04:41 Plt Count 184 10^3/uL (150-450) 11/27/19 04:41 Lymph % (Auto) 31.9 % (13-45) 11/27/19 04:41 Faulk % (Auto) 7.5 % (3-13) 11/27/19 04:41 Eos % (Auto) 4.1 % (0-6) 11/27/19 04:41 Baso % (Auto) 0.3 % (0-2) 11/27/19 04:41 Absolute Neuts (auto) 3.2 10^3/uL (1.7-8.2) 11/27/19 04:41 Absolute Lymphs (auto) 1.8 10^3/uL (0.5-4.7) 11/27/19 04:41 Absolute Monos (auto) 0.4 10^3/uL (0.1-1.4) 11/27/19 04:41 Absolute Eos (auto) 0.2 10^3/uL (0.0-0.6) 11/27/19 04:41 Absolute Basos (auto) 0.0 10^3/uL (0.0-0.2) 11/27/19 04:41 Seg Neutrophils % 56.2 % (42-78) 11/27/19 04:41 Sodium 139.4 mmol/L (137-145) 11/27/19 04:41 Potassium 3.9 mmol/L (3.6-5.0) 11/27/19 04:41 Chloride 108 mmol/L (98-107) H 11/27/19 04:41 Carbon Dioxide 21 mmol/L (22-30) L 11/27/19 04:41 Anion Gap 10 (5-19) 11/27/19 04:41 BUN 12 mg/dL (7-20) 11/27/19 04:41 Creatinine 0.60 mg/dL (0.52-1.25) 11/27/19 04:41 Est GFR ( Amer) > 60 (>60) 11/27/19 04:41 Est GFR (MDRD) Non-Af > 60 (>60) 11/27/19 04:41 Glucose 94 mg/dL (75-110) 11/27/19 04:41 Calcium 8.7 mg/dL (8.4-10.2) 11/27/19 04:41 Total Bilirubin 2.1 mg/dL (0.2-1.3) H 11/27/19 04:41 Direct Bilirubin 1.7 mg/dL (0.0-0.4) H 11/27/19 04:41 Neonat Total Bilirubin Not Reportable 11/27/19 04:41 Neonat Direct Bilirubin Not Reportable 11/27/19 04:41 Neonat Indirect Bili Not Reportable 11/27/19 04:41 AST 96 U/L (14-36) H 11/27/19 04:41 ALT 110 U/L (<35) H 11/27/19 04:41 Alkaline Phosphatase 88 U/L (38-126) 11/27/19 04:41 Total Protein 6.7 g/dL (6.3-8.2) 11/27/19 04:41 Albumin 3.6 g/dL (3.5-5.0) 11/27/19 04:41 Lipase 301.7 U/L (23-300) H 11/26/19 07:40 Urine Color PABLO 11/26/19 07:40 Urine Appearance SLIGHTLY-CLOUDY 11/26/19 07:40 Urine pH 5.0 (5.0-9.0) 11/26/19 07:40 Ur Specific [place] 1.026 11/26/19 07:40 Urine Protein NEGATIVE mg/dL (NEGATIVE) 11/26/19 07:40 Urine Glucose (UA) NEGATIVE mg/dL (NEGATIVE) 11/26/19 07:40 Urine Ketones NEGATIVE mg/dL (NEGATIVE) 11/26/19 07:40 Urine Blood SMALL (NEGATIVE) H 11/26/19 07:40 Urine Nitrite NEGATIVE (NEGATIVE) 11/26/19 07:40 Urine Bilirubin NEGATIVE (NEGATIVE) 11/26/19 07:40 Urine Urobilinogen 4.0 mg/dL (<2.0) H 11/26/19 07:40 Ur Leukocyte Esterase NEGATIVE (NEGATIVE) 11/26/19 07:40 Urine WBC (Auto) 5 /HPF 11/26/19 07:40 Urine RBC (Auto) 3 /HPF 11/26/19 07:40 Squamous Epi Cells Auto <1 /HPF 11/26/19 07:40 Calcium Oxalate Cr Auto TOO NUMEROUS TO CNT /HPF 11/26/19 07:40 Urine Mucus (Auto) RARE /LPF 11/26/19 07:40 Urine Ascorbic Acid NEGATIVE (NEGATIVE) 11/26/19 07:40 Urine HCG, Qual NEGATIVE (NEGATIVE) 11/26/19 07:40 Impressions: Abdomen Ultrasound 11/26/19 10:16 IMPRESSION: Cholelithiasis and probable cholecystitis. Cholangiogram 11/27/19 00:00 IMPRESSION: INTRAOPERATIVE CHOLANGIOGRAM.
[2019-11-28 13:34] VITALS: BP 117/66
== END 2019-11-28 14:32 | disposition home or self-care (01) ==
LOC: ER 06:34 → EH 11:54 → 4S 15:09
PROVIDERS: ATTEND Surgery
DX: K81.1 Chronic cholecystitis (principal); E66.9 Obesity, unspecified; Z79.899 Other long term (current) drug therapy; Z85.6 Personal history of leukemia; Z92.21 Personal history of antineoplastic chemotherapy; Z87.19 Personal history of other diseases of the digestive system
CPT/HCPCS: 96376; 99285; 96372; 96361; 96375; 96365; 36415 ×3; 83690; 85025 ×2; 81025; 80053 ×3; 81001; 88304 ×2; 74300; 76705; 00790; 47605; G0378 ×4; J2250; J3490 ×6; J1100; J0500; J3010; J1885 ×2; J2270 ×3; J2710; J1170 ×2; J2060; J0330; J2405 ×2; J7060 ×2; J7121 ×2; J7030; J2704; S0028 ×2; J0131; 790; J1610

== ENCOUNTER → 2020-05-25 | Outpatient (CLI) | payer BC ==
--- NOTE | 2020-05-26 14:48 | WOMENS IMAGING REPORT ---
EXAM DESCRIPTION: BILAT SCREENING MAMMO W/CAD IMAGES COMPLETED DATE/TIME: 05/25/2020 10:59 am REASON FOR STUDY: Z12.31 ENCNTR SCREEN MAMMOGRAM FOR MALIGNANT NEOPLASM OF BREAST Z12.31 ENCNTR SCR EEN MAMMOGRAM FOR MALIGNANT NEOPLASM OF GABINO COMPARISON: None. EXAM PARAMETERS: Standard craniocaudal and mediolateral oblique views of each breast recorded using digital acquisition. Read with the assistance of CAD. .[facility] - [employer] Sofa Cover Inspector Version 9.2 LIMITATIONS: None. FINDINGS: No suspicious masses, suspicious calcifications or architectural distortion. No areas of c oncern. IMPRESSION: NEGATIVE MAMMOGRAM. BIRADS 1 BREAST DENSITY: b. There are scattered areas of fibroglandular density. BIRAD: ASSESSMENT: 1 NEGATIVE RECOMMENDATION: ROUTINE SCREENING COMMENT: The patient has been notified of the results by letter per MQSA requirements. Additional no tification policies are in place for contacting patient with suspicious or incomplete findings. Quality ID #225: The [employer] recommends an annual screening mammogram for women aged 40 years or over. This facility utilizes a reminder system to ensure that all patients receive reminder letters, and/or direct phone calls for appointments. This includes reminders for routine scr eening mammograms, diagnostic mammograms, or other Breast Imaging Interventions when appropriate. Th is patient will be placed in the appropriate reminder system. TECHNICAL DOCUMENTATION: FINDING NUMBER: (1) ASSESSMENT: (1) JOB ID: [id number] 2010 [employer]- All Rights Reserved Reading location - IP/workstation name: [email or web address]
== END ==
LOC: WI 07:07
PROVIDERS: ATTEND Family Medicine
DX: Z12.31 Encounter for screening mammogram for malignant neoplasm of breast (principal)
CPT/HCPCS: 77067